=== PATIENT | female | born 1930 | race Two or more races ===

== ENCOUNTER 2016-12-18 22:53 | Observation (INO) | payer BC, MEDICARE ==
[~2016-12-18] VITALS: Ht 160 cm; Wt 58.1 kg
[~2016-12-18 22:53] MED LIST: ACET500T68 PO; AZIT250T6 PO; BUDE10.2 IH; CARV6.252 PO; CETI10TA22 PO; CHOL10003 PO; CLON0.2T PO; CLON1PAT PO; DICL100G18 TP; ESOM40CA PO; FURO20TA3 PO; FURO40TA4 PO; GUAI600T47 PO; HUM100IN3 SQ; HYDR50TA6 PO; INSU100I16 SQ; INSU100V3 SQ; IPRA3AMP NEB; LEVO500T59 PO; LEVO50TA PO; LOSA50TA6 PO; METH4TAB2 PO; MOME13HF IH; MONT10TA6 PO; MULT1TAB90 PO; OLOP2.5D EACHEYE; ONDA4TAB7 PO; OXYC5CAP PO; POLY17PO29 PO; POTA99TA10 PO; POTASSIUM CHLO10 MEQ PO; PROVENTIL HFA6.7 GM IH; RANI150T2 PO; SENN-22 PO; TRAM50TA PO
[2016-12-18 23:13] LABS: BASO # 0.1 x10^3/uL (0.0-0.2); BASO % 1 % (0-3); EOS % 3 % (0-3); HEMATOCRIT 32.5 % (36.0-47.0); HEMOGLOBIN 10.9 g/dL (12.0-15.5); LYMPH # 1.6 x10^3/uL (1.0-4.8); LYMPH % 17 % (24-48); MEAN CORPUSCULAR HEMOGLOBIN 30 pg (25-35); MEAN CORPUSCULAR HGB CONC 34 g/dL (31-37); MEAN CORPUSCULAR VOLUME 89 fL (79-100); MONO % 8 % (0-9); NEUT % 71 % (31-73); PLATELET COUNT 255 x10^3/uL (140-400); RED BLOOD COUNT 3.64 x10^6/uL (3.50-5.40); RED CELL DISTRIBUTION WIDTH 14.1 % (11.5-14.5); WHITE BLOOD COUNT 9.2 x10^3/uL (4.0-11.0)
--- NOTE | 2016-12-18 23:19 | PHYS DOC ---
Past Medical History Past Medical History: Asthma, CHF, Diabetes-Type II, GERD, High Cholesterol, Hypertension, Hyperthyroid, Pneumonia, Renal Disease Additional Past Medical Histor: Thyroid Past Surgical History: Cholecystectomy, , Other Additional Past Surgical Histo: R SHOULDER Additional Information: non smoker Alcohol Use: None Drug Use: None Adult General Chief Complaint Chief Complaint: DIZZY/LIGHT HEADED HPI HPI Patient is a 86 year old female who presents with dizziness. She states she was watching TV at 2000 p.m. when she started feeling dizzy. She describes as a lightheadedness. No syncope. She states that she just couldn't go to sleep. No headache, no chest pain, no difficulty breathing. She states she normally uses a cane to ambulate had no falls today. She states "I having a good day until this happen". No visual changes, no neck pain, no numbness tingling or weakness of her arms or legs. She is followed by Dr Lupe Boothe. Last admission for pneumonia in Apr 2016. Review of Systems Review of Systems Constitutional: Denies fever or chills Eyes: Denies change in visual acuity, redness, or eye pain HENT: Denies nasal congestion or sore throat Respiratory: Denies cough or shortness of breath Cardiovascular: No chest pain GI: Denies abdominal pain, nausea, vomiting, bloody stools or diarrhea : Denies dysuria or hematuria Musculoskeletal: Denies back pain or joint pain Integument: Denies rash or skin lesions Neurologic: Denies headache, focal weakness or sensory changes. POS dizziness. Current Medications Current Medications Current Medications Medications (Trade) Dose Ordered Sig/Hernán Start Time Stop Time Status Last Admin Dose Admin Ceftriaxone Sodium 50 ml @ 100 mls/hr 1X ONCE 12/19/16 00:45 12/19/16 01:14 Info (Do NOT chart on this entry -- for MONITORING) 1 each PRN DAILY PRN 12/19/16 00:30 12/21/16 00:29 Iohexol (Omnipaque 300 Mg/ml) 75 ml 1X ONCE 12/19/16 00:15 12/19/16 00:25 DC 12/19/16 00:21 75 ML Allergies Allergies Allergies Coded Allergies Type Severity Reaction Last Updated Verified celecoxib Allergy Intermediate 04/26/16 Yes hydrocodone Allergy Intermediate 07/24/15 Yes itraconazole Allergy Intermediate 07/24/15 Yes metoclopramide Allergy Intermediate 07/24/15 Yes propoxyphene Allergy Intermediate 07/24/15 Yes Physical Exam Physical Exam Constitutional: Well developed, well nourished, no acute distress, non-toxic appearance. HENT: Normocephalic, atraumatic, bilateral external ears normal, oropharynx moist, no oral exudates, nose normal. Eyes: PERRLA, EOMI, conjunctiva normal, no discharge. Neck: Normal range of motion, no tenderness, supple, no stridor. Cardiovascular:Heart rate regular rhythm, no murmur Lungs & Thorax: Bilateral breath sounds clear to auscultation Abdomen: Bowel sounds normal, soft, no tenderness, no masses, no pulsatile masses. Skin: Warm, dry, no erythema, no rash. Back: No tenderness, no CVA tenderness. Extremities: No tenderness, no cyanosis, no clubbing, ROM intact, no edema. Neurologic: Alert and oriented X 3, normal motor function, normal sensory function, no focal deficits noted. NIHSS zero. Psychologic: Affect normal, judgement normal, mood normal. Current Patient Data Lab Values Laboratory Tests Test 12/18/16 23:03 12/18/16 23:15 White Blood Count 9.2 x10^3/uL (4.0-11.0) Red Blood Count 3.64 x10^6/uL (3.50-5.40) Hemoglobin 10.9 g/dL (12.0-15.5) L Hematocrit 32.5 % (36.0-47.0) L Mean Corpuscular Volume 89 fL (79-100) Mean Corpuscular Hemoglobin 30 pg (25-35) Mean Corpuscular Hemoglobin Concent 34 g/dL (31-37) Red Cell Distribution Width 14.1 % (11.5-14.5) Platelet Count 255 x10^3/uL (140-400) Neutrophils (%) (Auto) 71 % (31-73) Lymphocytes (%) (Auto) 17 % (24-48) L Monocytes (%) (Auto) 8 % (0-9) Eosinophils (%) (Auto) 3 % (0-3) Basophils (%) (Auto) 1 % (0-3) Neutrophils # (Auto) 6.6 x10^3uL (1.8-7.7) Lymphocytes # (Auto) 1.6 x10^3/uL (1.0-4.8) Monocytes # (Auto) 0.8 x10^3/uL (0.0-1.1) Eosinophils # (Auto) 0.2 x10^3/uL (0.0-0.7) Basophils # (Auto) 0.1 x10^3/uL (0.0-0.2) Prothrombin Time 12.8 SEC (11.7-14.0) Prothrombin Time INR 1.0 (0.8-1.1) D-Dimer (Yen) 1.83 ug/mlFEU (0.00-0.50) H Sodium Level 140 mmol/L (136-145) Potassium Level 3.2 mmol/L (3.5-5.1) L Chloride Level 101 mmol/L (98-107) Carbon Dioxide Level 29 mmol/L (21-32) Anion Gap 10 (6-14) Blood Urea Nitrogen 13 mg/dL (7-20) Creatinine 0.6 mg/dL (0.6-1.0) Estimated GFR (Cockcroft-Gault) 94.3 Glucose Level 61 mg/dL (70-99) L Calcium Level 9.4 mg/dL (8.5-10.1) Creatine Kinase 44 U/L (26-192) Creatine Kinase MB (Mass) 0.5 ng/mL (0.0-3.6) Creatine Kinase MB Relative Index % (0-4) Troponin I Quantitative < 0.017 ng/mL (0.000-0.055) DE-Mwg-X-Type Natriuretic Peptide 560 pg/mL (0-449) H Urine Collection Type Unknown Urine Color Yellow Urine Clarity Clear Urine pH 7.5 Urine Specific [place] 1.010 Urine Protein Negative mg/dL (NEG-TRACE) Urine Glucose (UA) Negative mg/dL (NEG) Urine Ketones (Stick) Negative mg/dL (NEG) Urine Blood Negative (NEG) Urine Nitrite Positive (NEG) Urine Bilirubin Negative (NEG) Urine Urobilinogen Dipstick 0.2 mg/dL (0.2 mg/dL) Urine Leukocyte Esterase Large (NEG) Urine RBC Occ /HPF (0-2) Urine WBC >40 /HPF (0-4) Urine Squamous Epithelial Cells Occ /LPF Urine Renal Epithelial Cells Occ /LPF Urine Bacteria Many /HPF (0-FEW) Urine Mucus Slight /LPF Laboratory Tests 12/18/16 23:03 Laboratory Tests 12/18/16 23:03 EKG EKG EKG interpreted by myself at 2345 PM: NSR, rate 73, leftward axis and Left ventricular hypertrophy. No acute ST elevation Radiology/Procedures Radiology/Procedures CXR interpreted by myself at 2330 PM: no infiltrate; no consolidation. No acute findings [facility] [address] [place] [address] IMAGING REPORT Signed PATIENT: FARZANEH MAHARAJ ACCOUNT: [id number] : 1930 LOCATION: ER AGE: 86 SEX: F EXAM STATUS: REG ER ORD. PHYSICIAN: COLEMAN LANCE MD REASON: dizzy PROCEDURE: CT HEAD WO CONTRAST PQRS Compliance Statement: One or more of the following individualized dose reduction techniques were utilized for this examination: 1. Automated exposure control 2. Adjustment of the mA and/or kV according to patient size 3. Use of iterative reconstruction technique CT HEAD WITHOUT CONTRAST History: dizzy, Comparison: CT head without contrast, December 22, 2014. Technique: Axial images are obtained of the head from the skull base through the vertex without IV contrast. Findings: No mass-effect, midline shift, extra-axial fluid collection, hemorrhage, or obvious acute infarction is identified. Basilar cisterns are patent. The ventricles and sulci are prominent, consistent with age-related cerebral atrophy. There is periventricular white matter hypoattenuation. This is a nonspecific finding but is commonly due to chronic small vessel ischemic disease. Old right cerebellar lacunar infarct. Bone windows demonstrate no acute calvarial abnormality. The visualized paranasal sinuses are clear. Bilateral mastoid air cells are partially opacified, worse on the right. Finding unchanged from prior study. IMPRESSION: 1. No acute intracranial abnormality. 2. Age-related cerebral atrophy and periventricular white matter changes of chronic small vessel ischemic disease. 3. Old right cerebellar lacunar infarct. 4. Bilateral mastoid air cells are partially opacified, unchanged from prior study. Electronically signed by: Saran Haile MD (12/18/2016 11:31 PM) [facility] DICTATED and SIGNED BY: SARAN HAILE MD DATE: 12/18/16 823 CC: COLEMAN LANCE MD; LUPE BOOTHE MD ~ [facility] [address] [place] [address] IMAGING REPORT Signed PATIENT: FARZANEH MAHARAJ ACCOUNT: [id number] : 1930 LOCATION: ER AGE: 86 SEX: F EXAM STATUS: REG ER ORD. PHYSICIAN: COLEMAN LANCE MD REASON: elev d dimer; r/o PE PROCEDURE: CT ANGIOGRAPHY CHEST PQRS Compliance Statement: One or more of the following individualized dose reduction techniques were utilized for this examination: 1. Automated exposure control 2. Adjustment of the mA and/or kV according to patient size 3. Use of iterative reconstruction technique CT CHEST WITH CONTRAST, PULMONARY ANGIOGRAM History: elevated d dimer, history of CHF. Comparison: None. Technique: Helical CT of the chest was performed after the administration of 75 cc Omnipaque 300 intravenous contrast according to PE protocol. Axial and coronal reconstructions were obtained. 3-D MIP images were constructed to better evaluate the pulmonary arteries. Findings: Pulmonary arteries are adequately opacified. There is no evidence of pulmonary embolism. Great vessels normal caliber. There is coronary artery disease. Elevation of right hemidiaphragm. Cardiac size normal, no pericardial effusion. No pleural effusion. No adenopathy in the chest. Central airways are patent. Peripheral reticular opacities in the lungs are probably due to scarring. There is bilateral lower lobe atelectasis. There is mild peribronchial thickening in the inferior lingula. Cholecystectomy. Adrenal gland hyperplasia. Right shoulder arthroplasty. No compression fracture in the thoracic spine is seen. IMPRESSION: 1. There is no CT evidence of pulmonary embolus. 2. Inferior lingular bronchitis. Electronically signed by: Saran Haile MD (12/19/2016 12:47 AM) [facility] DICTATED and SIGNED BY: SARAN HAILE MD DATE: 12/19/16 0042 CC: COLEMAN LANCE MD; LUPE BOOTHE MD ~ Course & Med Decision Making Course & Med Decision Making Evaluated patient upon arrival. NIHSS =0. My differential diagnosis includes but is not limited to acute cerebrovascular accident, myocardial ischemia, coronary emboli, sepsis, pneumonia, metabolic disorder, At midnight: lab reviewed; UA is positive. Rocephin IV dosed. WBC is normal with no left shift; NO SEPSIS indication. D dimer is elevated. Will check CT chest (normal creatinine). At 0100 AM: CT chest negative for PE. Admit for UTI and dizziness. No evidence of acute CVA or neurologic event at this time. Contacted DR Winifred Boothe for admission at 0100 AM and he accepted admission for obsv. I have spoken with the patient and/or caregivers. I have explained the patient' s condition, diagnosis and treatment plan based on the information available to me at this time. I have answered the patient's and/or caregiver's questions and addressed any concerns. The patient and/or caregivers have as good an understanding of the patient's diagnosis, condition and treatment plan as can be expected at this point. The patient has been stabilized within the capability of the emergency department. The patient will be transported for further care and management or will be moved to an observation or inpatient service. I have communicated with the staff or medical practitioner taking over this patient's care. Dragon Disclaimer Dragon Disclaimer This electronic medical record was generated, in whole or in part, using a voice recognition dictation system. Departure Departure Impression: Primary Impression: Urinary tract infection Additional Impression: Dizziness Disposition: ADMITTED INPATIENT Admitting Physician: Lupe Boothe Condition: STABLE Referrals: LUPE BOOTHE MD (PCP) NIHSS NIHSS Performed my myself at 2330 PM: Administer stroke scale items in the order listed. Record performance in each category after each subscale exam. Do not go back and change scores. Follow directions provided for each exam technique. Scores should reflect what the patient does, not what the clinician thinks the patient can do. The clinician should record answers while administering the exam and work quickly. Except where indicated, the patient should not be coached (i.e., repeated requests to patient to make a special effort). 1a. Level of Consciousness: The criminal investigator must choose a response if a full evaluation is prevented by such obstacles as an endotracheal tube, language barrier, orotracheal trauma/bandages. A 3 is scored only if the patient makes no movement (other than reflexive posturing) in response to noxious stimulation. 0 = Alert; keenly responsive. 1 = Not alert; but arousable by minor stimulation to obey, answer, or respond. 2 = Not alert; requires repeated stimulation to attend, or is obtunded and requires strong or painful stimulation to make movements (not stereotyped). 3 = Responds only with reflex motor or autonomic effects or totally unresponsive, flaccid, and areflexic. 1b. LOC Questions: The patient is asked the month and his/her age. The answer must be correct - there is no partial credit for being close. Aphasic and stuporous patients who do not comprehend the questions will score 2. Patients unable to speak because of endotracheal intubation, orotracheal trauma, severe dysarthria from any cause, language barrier, or any other problem not secondary to aphasia are given a 1. It is important that only the initial answer be graded and that the examiner not "help" the patient with verbal or non-verbal cues. 0 = Answers both questions correctly. 1 = Answers one question correctly. 2 = Answers neither question correctly. 1c. LOC Commands: The patient is asked to open and close the eyes and then to balance clerk and release the non-paretic hand. Substitute another one step command if the hands cannot be used. Credit is given if an unequivocal attempt is made but not completed due to weakness. If the patient does not respond to command, the task should be demonstrated to him or her (pantomime), and the result scored (i.e., follows none, one or two commands). Patients with trauma, amputation, or other physical impediments should be given suitable one-step commands. Only the first attempt is scored. 0 = Performs both tasks correctly. 1 = Performs one task correctly. 2 = Performs neither task correctly. 2. Best Gaze: Only horizontal eye movements will be tested. Voluntary or reflexive (oculocephalic) eye movements will be scored, but caloric testing is not done. If the patient has a conjugate deviation of the eyes that can be overcome by voluntary or reflexive activity, the score will be 1. If a patient has an isolated peripheral nerve paresis (CN III, IV or ), score a 1. Gaze is testable in all aphasic patients. Patients with ocular trauma, bandages, pre-existing blindness, or other disorder of visual acuity or austin should be tested with reflexive movements, and a choice made by the criminal investigator. Establishing eye contact and then moving about the patient from side to side will occasionally clarify the presence of a partial gaze palsy. 0 = Normal. 1 = Partial gaze palsy; gaze is abnormal in one or both eyes, but forced deviation or total gaze paresis is not present. 2 = Forced deviation, or total gaze paresis not overcome by the oculocephalic maneuver. Interval: [ ] Baseline [ ] 2 hours post treatment [ ] 24 hours post onset of symptoms 20 minutes [ ] 7-10 days [ ] 3 months [ ] Other ( ) 3. Visual: Visual austin (upper and lower quadrants) are tested by confrontation, using finger counting or visual threat, as appropriate. Patients may be encouraged, but if they look at the side of the moving fingers appropriately, this can be scored as normal. If there is unilateral blindness or enucleation, visual austin in the remaining eye are scored. Score 1 only if a clear-cut asymmetry, including quadrantanopia, is found. If patient is blind from any cause, score 3. Double simultaneous stimulation is performed at this point. If there is extinction, patient receives a 1, and the results are used to respond to item 11. 0 = No visual loss. 1 = Partial hemianopia. 2 = Complete hemianopia. 3 = Bilateral hemianopia (blind including cortical blindness). 4. Facial Palsy: Ask - or use pantomime to encourage - the patient to show teeth or raise eyebrows and close eyes. Score symmetry of grimace in response to noxious stimuli in the poorly responsive or non-comprehending patient. If facial trauma/bandages, orotracheal tube, tape or other physical barriers obscure the face, these should be removed to the extent possible. 0 = Normal symmetrical movements. 1 = Minor paralysis (flattened nasolabial fold, asymmetry on smiling). 2 = Partial paralysis (total or near-total paralysis of lower face). 3 = Complete paralysis of one or both sides (absence of facial movement in the upper and lower face). 5. Motor Arm: The limb is placed in the appropriate position: extend the arms (palms down) 90 degrees (if sitting) or 45 degrees (if supine). Drift is scored if the arm falls before 10 seconds. The aphasic patient is encouraged using urgency in the voice and pantomime, but not noxious stimulation. Each limb is tested in turn, beginning with the non-paretic arm. Only in the case of amputation or joint fusion at the shoulder, the examiner should record the score as untestable (UN), and clearly write the explanation for this choice. 0 = No drift; limb holds 90 (or 45) degrees for full 10 seconds. 1 = Drift; limb holds 90 (or 45) degrees, but drifts down before full 10 seconds ; does not hit bed or other support. 2 = Some effort against gravity; limb cannot get to or maintain (if cued) 90 ( or 45) degrees, drifts down to bed, but has some effort against gravity. 3 = No effort against gravity; limb falls. 4 = No movement. UN = Amputation or joint fusion, explain: 5a. Left Arm=0 5b. Right Arm =0 6. Motor Leg: The limb is placed in the appropriate position: hold the leg at 30 degrees (always tested supine). Drift is scored if the leg falls before 5 seconds. The aphasic patient is encouraged using urgency in the voice and pantomime, but not noxious stimulation. Each limb is tested in turn, beginning with the non-paretic leg. Only in the case of amputation or joint fusion at the hip, the examiner should record the score as untestable (UN), and clearly write the explanation for this choice. 0 = No drift; leg holds 30-degree position for full 5 seconds. 1 = Drift; leg falls by the end of the 5-second period but does not hit bed. 2 = Some effort against gravity; leg falls to bed by 5 seconds, but has some effort against gravity. 3 = No effort against gravity; leg falls to bed immediately. 4 = No movement. UN = Amputation or joint fusion, explain: 6a. Left Leg=0 6b. Right Leg =0 Interval: [ ] Baseline [ ] 2 hours post treatment [ ] 24 hours post onset of symptoms 20 minutes [ ] 7-10 days [ ] 3 months [ ] Other ( ) 7. Limb Ataxia: This item is aimed at finding evidence of a unilateral cerebellar lesion. Test with eyes open. In case of visual defect, ensure testing is done in intact visual field. The ggejzq-lvvw-jjndis and heel-piedra tests are performed on both sides, and ataxia is scored only if present out of proportion to weakness. Ataxia is absent in the patient who cannot understand or is paralyzed. Only in the case of amputation or joint fusion, the examiner should record the score as untestable (UN), and clearly write the explanation for this choice. In case of blindness, test by having the patient touch nose from extended arm position. 0 = Absent. 1 = Present in one limb. 2 = Present in two limbs. UN = Amputation or joint fusion, explain: 8. Sensory: Sensation or grimace to pinprick when tested, or withdrawal from noxious stimulus in the obtunded or aphasic patient. Only sensory loss attributed to stroke is scored as abnormal and the examiner should test as many body areas (arms [not hands], legs, trunk, face) as needed to accurately check for hemisensory loss. A score of 2, "severe or total sensory loss," should only be given when a severe or total loss of sensation can be clearly demonstrated. Stuporous and aphasic patients will, therefore, probably score 1 or 0. The patient with brainstem stroke who has bilateral loss of sensation is scored 2. If the patient does not respond and is quadriplegic, score 2. Patients in a coma (item 1a=3) are automatically given a 2 on this item. 0 = Normal; no sensory loss. 1 = Nsxd-dt-[id number] sensory loss; patient feels pinprick is less sharp or is dull on the affected side; or there is a loss of superficial pain with pinprick , but patient is aware of being touched. 2 = Severe to total sensory loss; patient is not aware of being touched in the face, arm, and leg. 9. Best Language: A great deal of information about comprehension will be obtained during the preceding sections of the examination. For this scale item, the patient is asked to describe what is happening in the attached picture, to name the items on the attached naming sheet and to read from the attached list of sentences. Comprehension is judged from responses here, as well as to all of the commands in the preceding general neurological exam. If visual loss interferes with the tests, ask the patient to identify objects placed in the hand, repeat, and produce speech. The intubated patient should be asked to write. The patient in a coma (item 1a=3) will automatically score 3 on this item. The examiner must choose a score for the patient with stupor or limited cooperation, but a score of 3 should be used only if the patient is mute and follows no one-step commands. 0 = No aphasia; normal. 1 = Xxsk-ry-solteiyi aphasia; some obvious loss of fluency or facility of comprehension, without significant limitation on ideas expressed or form of expression. Reduction of speech and/or comprehension, however, makes conversation about provided materials difficult or impossible. For example, in conversation about provided materials, examiner can identify picture or naming card content from patient's response. 2 = Severe aphasia; all communication is through fragmentary expression; great need for inference, questioning, and guessing by the listener. Range of information that can be exchanged is limited; listener carries burden of communication. Examiner cannot identify materials provided from patient response. 3 = Mute, global aphasia; no usable speech or auditory comprehension. 10. Dysarthria: If patient is thought to be normal, an adequate sample of speech must be obtained by asking patient to read or repeat words from the attached list. If the patient has severe aphasia, the clarity of articulation of spontaneous speech can be rated. Only if the patient is intubated or has other physical barriers to producing speech, the examiner should record the score as untestable (UN), and clearly write an explanation for this choice. Do not tell the patient why he or she is being tested. 0 = Normal. 1 = Cjwc-xh-ehfyoszd dysarthria; patient slurs at least some words and, at worst , can be understood with some difficulty. 2 = Severe dysarthria; patient's speech is so slurred as to be unintelligible in the absence of or out of proportion to any dysphasia, or is mute/anarthric. UN = Intubated or other physical barrier, explain: Interval: [ ] Baseline [ ] 2 hours post treatment [ ] 24 hours post onset of symptoms 20 minutes [ ] 7-10 days [ ] 3 months [ ] Other ( ) 11. Extinction and Inattention (formerly Neglect): Sufficient information to identify neglect may be obtained during the prior testing. If the patient has a severe visual loss preventing visual double simultaneous stimulation, and the cutaneous stimuli are normal, the score is normal. If the patient has aphasia but does appear to attend to both sides, the score is normal. The presence of visual spatial neglect or anosagnosia may also be taken as evidence of abnormality. Since the abnormality is scored only if present, the item is never untestable. 0 = No abnormality. 1 = Visual, tactile, auditory, spatial, or personal inattention or extinction to bilateral simultaneous stimulation in one of the sensory modalities. 2 = Profound manuela-inattention or extinction to more than one modality; does not recognize own hand or orients to only one side of space. Problem Qualifiers Primary Impression: Urinary tract infection Urinary tract infection type: acute cystitis Hematuria presence: without hematuria Qualified Codes: N30.00 - Acute cystitis without hematuria COLEMAN LANCE MD Dec 18, 2016 23:19
[2016-12-18 23:23] LABS: PROTHROMBIN TIME PATIENT 12.8 SEC (11.7-14.0)
[2016-12-18 23:25] LABS: CALCIUM 9.4 mg/dL (8.5-10.1); CREATININE 0.6 mg/dL (0.6-1.0); GFR 94.3; POTASSIUM 3.2 mmol/L (3.5-5.1)
[2016-12-18 23:31] LABS: BILIRUBIN,URINE NEGATIVE (NEG); GLUCOSE,URINE NEGATIVE (NEG); NITRITE,URINE POSITIVE (NEG); PH,URINE 7.5; PROTEIN,URINE NEGATIVE (NEG-TRACE); UROBILINOGEN,URINE 0.2 mg/dL (0.2 mg/dL)
--- NOTE | 2016-12-18 23:34 | RAD ---
RS Compliance Statement: One or more of the following individualized dose reduction techniques were utilized for this examination: 1. Automated exposure control 2. Adjustment of the mA and/or kV according to patient size 3. Use of iterative reconstruction technique CT HEAD WITHOUT CONTRAST History: dizzy, Comparison: CT head without contrast, December 22, 2014. Technique: Axial images are obtained of the head from the skull base through the vertex without IV contrast. Findings: No mass-effect, midline shift, extra-axial fluid collection, hemorrhage, or obvious acute infarction is identified. Basilar cisterns are patent. The ventricles and sulci are prominent, consistent with age-related cerebral atrophy. There is periventricular white matter hypoattenuation. This is a nonspecific finding but is commonly due to chronic small vessel ischemic disease. Old right cerebellar lacunar infarct. Bone windows demonstrate no acute calvarial abnormality. The visualized paranasal sinuses are clear. Bilateral mastoid air cells are partially opacified, worse on the right. Finding unchanged from prior study. IMPRESSION: 1. No acute intracranial abnormality. 2. Age-related cerebral atrophy and periventricular white matter changes of chronic small vessel ischemic disease. 3. Old right cerebellar lacunar infarct. 4. Bilateral mastoid air cells are partially opacified, unchanged from prior study. Electronically signed by: Noel Haile MD (12/18/2016 11:31 PM) [facility]
[2016-12-18 23:39] LABS: BACTERIA,URINE MANY /HPF (0-FEW); RBC,URINE OCC /HPF (0-2); SQUAMOUS EPITHELIAL CELL,UR OCC /LPF; WBC,URINE >40 /HPF (0-4)
[2016-12-18 23:41] LABS: CKMB MASS 0.5 ng/mL (0.0-3.6); CREATINE KINASE 44 U/L (26-192)
[2016-12-19] VITALS (7 sets, daily range): BP systolic 106–155; BP diastolic 54–85
[2016-12-19] MEDS ORDERED: IOHEXOL 300 MG/ML 75 ML VIAL IV ONE (00:15)
[2016-12-19] MEDS ORDERED: CONTRAST GIVEN MC PRN (00:30)
--- NOTE | 2016-12-19 00:50 | RAD ---
PQRS Compliance Statement: One or more of the following individualized dose reduction techniques were utilized for this examination: 1. Automated exposure control 2. Adjustment of the mA and/or kV according to patient size 3. Use of iterative reconstruction technique CT CHEST WITH CONTRAST, PULMONARY ANGIOGRAM History: elevated d dimer, history of CHF. Comparison: None. Technique: Helical CT of the chest was performed after the administration of 75 cc Omnipaque 300 intravenous contrast according to PE protocol. Axial and coronal reconstructions were obtained. 3-D MIP images were constructed to better evaluate the pulmonary arteries. Findings: Pulmonary arteries are adequately opacified. There is no evidence of pulmonary embolism. Great vessels normal caliber. There is coronary artery disease. Elevation of right hemidiaphragm. Cardiac size normal, no pericardial effusion. No pleural effusion. No adenopathy in the chest. Central airways are patent. Peripheral reticular opacities in the lungs are probably due to scarring. There is bilateral lower lobe atelectasis. There is mild peribronchial thickening in the inferior lingula. Cholecystectomy. Adrenal gland hyperplasia. Right shoulder arthroplasty. No compression fracture in the thoracic spine is seen. IMPRESSION: 1. There is no CT evidence of pulmonary embolus. 2. Inferior lingular bronchitis. Electronically signed by: Noel Haile MD (12/19/2016 12:47 AM) [facility]
[2016-12-19] MEDS ORDERED: cloNIDine HCL 0.1 MG TABLET PO ONE (01:15)
[2016-12-19] MEDS ORDERED: ONDANSETRON PF 4 MG/2 ML VIAL. IV PRN (02:45)
--- NOTE | 2016-12-19 06:09 | EKG ---
[facility] [address] [place] [address] Test Date: 2016-12-18 Test Time: 23:45:39 Pat Name: FARZANEH MAHARAJ Department: Room: [facility] 1 Gender: F School Counsellor: : 1930 Requested By: COLEMAN LANCE Order Number: [id number] Reading MD: Ambrocio West Measurements Intervals [place] Rate: 73 P: 22 NH: 140 QRS: -16 QRSD: 106 T: -11 QT: 394 QTc: 438 Interpretive Statements SINUS RHYTHM LEFTWARD AXIS LEFT VENTRICULAR HYPERTROPHY T ABNORMALITY IN ANTERIOR LEADS ABNORMAL ECG Electronically Signed On 12-20-2016 11:19:52 CDT by Ambrocio West
--- NOTE | 2016-12-19 07:25 | RAD ---
Exam performed: One view chest. History: Dizziness. Date of service: 12/18/16. Comparison: Single view chest from 04/28/16. Single AP upright portable chest findings: Study somewhat limited due to poor inspiration. Heart size is within limits of normal. Pulmonary vascularity is unremarkable. Atheromatous calcification of the aortic knob. Prominent interstitial markings are seen in both lungs probably a chronic basis. Questionable opacity seen in the left lung base with blunting of the left costophrenic angle Impression: Questionable left basilar infiltrates with probable tiny effusion.
[2016-12-19] MEDS: POTASSIUM CHLORIDE 20 MEQ TABLET.ER. PO SCH ×2 (09:38→14:38)
[2016-12-19] MEDS: FUROSEMIDE 20 MG TABLET PO SCH (09:41)
[2016-12-19] MEDS: CARVEDILOL 6.25 MG TABLET. PO SCH ×2 (09:41→17:58)
[2016-12-19] MEDS: cloNIDine HCL 0.2 MG TABLET PO SCH ×2 (09:42→20:37)
[2016-12-19] MEDS: LEVOTHYROXINE 100 MCG TABLET PO SCH (09:42)
--- NOTE | 2016-12-19 09:42 | PDOC1 ---
JATIN KEARNS CUSTOMER SUCCESS SPECIALIST 12/19/16 0942: HISTORY AND PHYSICAL Chief Complaint Chief Complaint This 86 year old [place]ian female has been admitted with a chief complaint of dizziness. This morning she reports she felt a hot feeling and just did not feel right. She had noted a cough that was scant positive thick sputum but no chills. She was concerned about her symptoms, called 911 and was brought to the ED for evaluation. CT of the head was negative acute findings. EKG SR no acute changes but subtle changes present. CXR suggestive L basilar infiltrate. CTA chest inferior lingular bronchitis. UA + nitrite, large leukoesterase, and WBC > 40. Hypertensive urgency was present with SBP >200. She was given clonidine 0.2mg, Rocephin 1gm IV x 1 and admitted. . 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 Medications Medications reviewed and reconciled Allergy Allergies Coded Allergies Type Severity Reaction Last Updated Verified celecoxib Allergy Intermediate 04/26/16 Yes hydrocodone Allergy Intermediate 07/24/15 Yes itraconazole Allergy Intermediate 07/24/15 Yes metoclopramide Allergy Intermediate 07/24/15 Yes propoxyphene Allergy Intermediate 07/24/15 Yes Physical Exam Physical Exam General appearance - alert,well appearing, and in no distress Mental Status - alert, oriented to person, place, and time, affect appropriate to mood Head - normal Chest - clear to auscultation, no wheezes, rales or rhonchi Heart - S1 and S2 normal Abdomen - soft, nontender, nondistended, obese, BS+ Neurological - no acute focal neurological deficit Musculoskeletal - no muscular tenderness noted Extremities - no pedal edema Skin - warm and dry VTE Prophylaxis Ordered VTE Prophylaxis Devices: Yes VTE Pharmacological Prophylaxi: No Assessment Labs Laboratory Tests Test 12/18/16 23:03 12/18/16 23:15 12/19/16 02:00 White Blood Count 9.2 x10^3/uL (4.0-11.0) Red Blood Count 3.64 x10^6/uL (3.50-5.40) Hemoglobin 10.9 g/dL (12.0-15.5) Hematocrit 32.5 % (36.0-47.0) Mean Corpuscular Volume 89 fL (79-100) Mean Corpuscular Hemoglobin 30 pg (25-35) Mean Corpuscular Hemoglobin Concent 34 g/dL (31-37) Red Cell Distribution Width 14.1 % (11.5-14.5) Platelet Count 255 x10^3/uL (140-400) Neutrophils (%) (Auto) 71 % (31-73) Lymphocytes (%) (Auto) 17 % (24-48) Monocytes (%) (Auto) 8 % (0-9) Eosinophils (%) (Auto) 3 % (0-3) Basophils (%) (Auto) 1 % (0-3) Neutrophils # (Auto) 6.6 x10^3uL (1.8-7.7) Lymphocytes # (Auto) 1.6 x10^3/uL (1.0-4.8) Monocytes # (Auto) 0.8 x10^3/uL (0.0-1.1) Eosinophils # (Auto) 0.2 x10^3/uL (0.0-0.7) Basophils # (Auto) 0.1 x10^3/uL (0.0-0.2) Prothrombin Time 12.8 SEC (11.7-14.0) Prothromb Time International Ratio 1.0 (0.8-1.1) D-Dimer (Yen) 1.83 ug/mlFEU (0.00-0.50) Sodium Level 140 mmol/L (136-145) Potassium Level 3.2 mmol/L (3.5-5.1) Chloride Level 101 mmol/L (98-107) Carbon Dioxide Level 29 mmol/L (21-32) Anion Gap 10 (6-14) Blood Urea Nitrogen 13 mg/dL (7-20) Creatinine 0.6 mg/dL (0.6-1.0) Estimated GFR (Cockcroft-Gault) 94.3 Glucose Level 61 mg/dL (70-99) Calcium Level 9.4 mg/dL (8.5-10.1) Creatine Kinase 44 U/L (26-192) Creatine Kinase MB (Mass) 0.5 ng/mL (0.0-3.6) Creatine Kinase MB Relative Index % (0-4) Troponin I Quantitative < 0.017 ng/mL (0.000-0.055) < 0.017 ng/mL (0.000-0.055) YP-Gqy-E-Type Natriuretic Peptide 560 pg/mL (0-449) Urine Collection Type Unknown Urine Color Yellow Urine Clarity Clear Urine pH 7.5 Urine Specific [place] 1.010 Urine Protein Negative mg/dL (NEG-TRACE) Urine Glucose (UA) Negative mg/dL (NEG) Urine Ketones (Stick) Negative mg/dL (NEG) Urine Blood Negative (NEG) Urine Nitrite Positive (NEG) Urine Bilirubin Negative (NEG) Urine Urobilinogen Dipstick 0.2 mg/dL (0.2 mg/dL) Urine Leukocyte Esterase Large (NEG) Urine RBC Occ /HPF (0-2) Urine WBC >40 /HPF (0-4) Urine Squamous Epithelial Cells Occ /LPF Urine Renal Epithelial Cells Occ /LPF Urine Bacteria Many /HPF (0-FEW) Urine Mucus Slight /LPF Laboratory Tests Test 12/18/16 23:03 12/18/16 23:15 12/19/16 02:00 White Blood Count 9.2 x10^3/uL (4.0-11.0) Red Blood Count 3.64 x10^6/uL (3.50-5.40) Hemoglobin 10.9 g/dL (12.0-15.5) Hematocrit 32.5 % (36.0-47.0) Mean Corpuscular Volume 89 fL (79-100) Mean Corpuscular Hemoglobin 30 pg (25-35) Mean Corpuscular Hemoglobin Concent 34 g/dL (31-37) Red Cell Distribution Width 14.1 % (11.5-14.5) Platelet Count 255 x10^3/uL (140-400) Neutrophils (%) (Auto) 71 % (31-73) Lymphocytes (%) (Auto) 17 % (24-48) Monocytes (%) (Auto) 8 % (0-9) Eosinophils (%) (Auto) 3 % (0-3) Basophils (%) (Auto) 1 % (0-3) Neutrophils # (Auto) 6.6 x10^3uL (1.8-7.7) Lymphocytes # (Auto) 1.6 x10^3/uL (1.0-4.8) Monocytes # (Auto) 0.8 x10^3/uL (0.0-1.1) Eosinophils # (Auto) 0.2 x10^3/uL (0.0-0.7) Basophils # (Auto) 0.1 x10^3/uL (0.0-0.2) Prothrombin Time 12.8 SEC (11.7-14.0) Prothromb Time International Ratio 1.0 (0.8-1.1) D-Dimer (Yen) 1.83 ug/mlFEU (0.00-0.50) Sodium Level 140 mmol/L (136-145) Potassium Level 3.2 mmol/L (3.5-5.1) Chloride Level 101 mmol/L (98-107) Carbon Dioxide Level 29 mmol/L (21-32) Anion Gap 10 (6-14) Blood Urea Nitrogen 13 mg/dL (7-20) Creatinine 0.6 mg/dL (0.6-1.0) Estimated GFR (Cockcroft-Gault) 94.3 Glucose Level 61 mg/dL (70-99) Calcium Level 9.4 mg/dL (8.5-10.1) Creatine Kinase 44 U/L (26-192) Creatine Kinase MB (Mass) 0.5 ng/mL (0.0-3.6) Creatine Kinase MB Relative Index % (0-4) Troponin I Quantitative < 0.017 ng/mL (0.000-0.055) < 0.017 ng/mL (0.000-0.055) US-Kyx-M-Type Natriuretic Peptide 560 pg/mL (0-449) Urine Collection Type Unknown Urine Color Yellow Urine Clarity Clear Urine pH 7.5 Urine Specific [place] 1.010 Urine Protein Negative mg/dL (NEG-TRACE) Urine Glucose (UA) Negative mg/dL (NEG) Urine Ketones (Stick) Negative mg/dL (NEG) Urine Blood Negative (NEG) Urine Nitrite Positive (NEG) Urine Bilirubin Negative (NEG) Urine Urobilinogen Dipstick 0.2 mg/dL (0.2 mg/dL) Urine Leukocyte Esterase Large (NEG) Urine RBC Occ /HPF (0-2) Urine WBC >40 /HPF (0-4) Urine Squamous Epithelial Cells Occ /LPF Urine Renal Epithelial Cells Occ /LPF Urine Bacteria Many /HPF (0-FEW) Urine Mucus Slight /LPF Plan Plan IMPRESSION: 1. dizziness r/t hypertensive urgency 2. HTN urgency 3. acute bronchitis 4. UTI 5. asthma 5. anemia CD 6. CKD II 7. hyperlipidemia 8. h/o NSTEMI in Apr 2015 with negative CAD per CC 9. 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 chronic moderate PCL malnutrition 11. DM II chronic insulin with neuropathy PLAN HTN urgency resume home meds dizziness r/t elevated BP Acute bronchitis duo neb and budesonide Mucinex Rocephin IV UTI c/s pending Rocephin IV DM II humR conversion to levemir per pharmacy FSBS/ssi low intensity DVT/GI prophylaxis SCD/RANDY PPI For more details regarding further plans, please refer to the orders. LUPE MEDINA MD 12/19/16 1001: HISTORY AND PHYSICAL Plan Plan Patient had feeling of being hot and dizzy that lasted for a long time yesterday. Dizziness- multifactorial- possible UTI,?bronchitis,hypokalemia. start Rocephin.Replace K.Not sure if she is taking her KCL at home. EKG no new changes. The patient was seen and examined by me. Chart reviewed and plan of care formulated. Discussed with, reviewed and agree with TAMALE MAKER's notes, plan of care and orders with modifications as necessary. For more details regarding further plans, please refer to the orders. JATIN KEARNS APRN Dec 19, 2016 09:42 LUPE MEDINA MD Dec 19, 2016 10:01
[2016-12-19] MEDS ORDERED: ACETAMINOPHEN 325 MG TABLET. PO PRN (09:45)
[2016-12-19] MEDS: IPRATRPIUM/ALBUTEROL 0.5/2.5MG 3 ML NEBU. NEB SCH ×3 (11:12→19:50)
[2016-12-19] MEDS: BUDESONIDE 0.5 MG/2 ML NEBU. NEB SCH ×2 (11:13→19:50)
[2016-12-19] MEDS: MULTIVITAMIN with MINERAL TABLET. PO SCH (11:37)
[2016-12-19] MEDS: PANTOPRAZOLE 40 MG TABLET.DR. PO SCH (11:37)
[2016-12-19] MEDS: POLYETHYLENE GLYCOL 3350 17 GM PACKET. PO SCH (11:39)
[2016-12-19] MEDS: INSULIN DETEMIR 300 UNITS/3 ML INSULN.PEN. SQ SCH ×2 (12:31→18:01)
[2016-12-19] MEDS: INSULIN ASPART 300 UNITS/3 ML INSULN.PEN SQ SCH ×2 (12:33→16:30)
[2016-12-19] MEDS: DICLOFENAC SODIUM 1% TOPICAL GEL 100GM TUBE. TP SCH ×2 (14:41→20:38)
[2016-12-19] MEDS: LOSARTAN POTASSIUM 50 MG TABLET. PO SCH (20:36)
[2016-12-19] MEDS ORDERED: CETIRIZINE HCL 10 MG TABLET. PO SCH (21:00)
[2016-12-19] MEDS ORDERED: MONTELUKAST SODIUM 10 MG TABLET. PO SCH (21:00)
--- NOTE | 2016-12-20 00:10 | ACF ---
Admission Forms Criteria URINARY COMPLICATIONS (Place 'X' for any and all applicable criteria): Ongoing inpatient care may be needed for Urinary complications with 1 or more of the following: [ ]I. Reduced urine output (eg, despite adequate hydration) [ ]II. Renal failure. (Also use Renal Failure: Common Complications and Conditions as appropriate) [ ]III. Urinary retention requiring drainage or surgery(19)(20)(21)(33)(34) [ ]IV. Postobstructive diuresis requiring close monitoring of urine output and intravenous compensation for excessive fluid losses(35) [X]V. Urinary tract infection requiring inpatient care as indicated by ANY ONE of the following(8)(19)(20): [ ]a) Hemodynamic instability [ ]b) Severe symptoms (eg, high fever, severe pain) [ ]c) Vomiting or dehydration requiring ongoing inpatient care [X]d) IV antibiotic needs that cannot be managed at lower level of care [ ]e) Obstruction of collecting system by stone or tumor Extended stay beyond goal length of stay for primary condition may be needed until ALL of the following are present(3)(4)(5)(8): [ ]a) Renal function (creatinine) at baseline, or daily decreases in creatinine consistent with renal function return [ ]b) Voiding adequately or with urinary catheter or percutaneous suprapubic tube and management regimen in place that is performable at lower level of care. [ ]c) Urine output adequate [ ]d) Fever absent or resolving [ ]e) Infection absent or treatable at next level of care The original [employer] content created by [employer] has been revised. The portions of the content which have been revised are identified through the use of italic text, and [facility] has neither reviewed nor approved the modified material. All other unmodified content is copyright [facility] Please see references footnoted in the original [facility] edition 2015 Admission Criteria Met?: Yes ALICIA HAYES Dec 20, 2016 00:10
[2016-12-20 06:51] LABS: BASO % 1 % (0-3); EOS % 3 % (0-3); HEMATOCRIT 30.1 % (36.0-47.0); HEMOGLOBIN 9.9 g/dL (12.0-15.5); LYMPH # 1.4 x10^3/uL (1.0-4.8); LYMPH % 24 % (24-48); MEAN CORPUSCULAR HEMOGLOBIN 30 pg (25-35); MEAN CORPUSCULAR HGB CONC 33 g/dL (31-37); MEAN CORPUSCULAR VOLUME 91 fL (79-100); MONO % 9 % (0-9); NEUT % 64 % (31-73); PLATELET COUNT 218 x10^3/uL (140-400); RED BLOOD COUNT 3.32 x10^6/uL (3.50-5.40); RED CELL DISTRIBUTION WIDTH 14.6 % (11.5-14.5)
[2016-12-20 07:00] VITALS: BP 113/58
[2016-12-20 07:13] LABS: CREATININE 0.7 mg/dL (0.6-1.0); MAGNESIUM 2.2 mg/dL (1.8-2.4); POTASSIUM 4.3 mmol/L (3.5-5.1)
[2016-12-20] MEDS: INSULIN ASPART 300 UNITS/3 ML INSULN.PEN SQ SCH ×2 (07:30→11:30)
[2016-12-20] MEDS: IPRATRPIUM/ALBUTEROL 0.5/2.5MG 3 ML NEBU. NEB SCH ×2 (07:31→11:21)
[2016-12-20] MEDS: BUDESONIDE 0.5 MG/2 ML NEBU. NEB SCH (07:31)
--- NOTE | 2016-12-20 07:47 | PDOC3 ---
OLGAHannahJATIN ARELLANO DYNAMIC ETCHING PROCESSOR 12/20/16 0747: IM DISCHARGE & PROGRESS NOTES Date of Admission Date of Admission Date of Admission: Dec 19, 2016 at 01:00 Date of Discharge Date of Discharge 12/20/16 Primary Diagnosis Primary Diagnosis IMPRESSION: 1. dizziness r/t hypertensive urgency 2. HTN urgency 3. acute bronchitis POA neg sepsis 4. UTI POA neg sepsis 5. asthma 5. anemia CD 6. CKD II 7. hyperlipidemia 8. h/o NSTEMI in Apr 2015 with negative CAD per CC 9. 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 chronic moderate PCL malnutrition 11. DM II chronic insulin with neuropathy hypoglycemia Consults Consults None Procedures Procedures None Labs Labs Laboratory Tests Test 12/18/16 23:03 12/18/16 23:15 12/19/16 02:00 12/19/16 07:09 White Blood Count 9.2 x10^3/uL (4.0-11.0) Red Blood Count 3.64 x10^6/uL (3.50-5.40) Hemoglobin 10.9 g/dL (12.0-15.5) Hematocrit 32.5 % (36.0-47.0) Mean Corpuscular Volume 89 fL (79-100) Mean Corpuscular Hemoglobin 30 pg (25-35) Mean Corpuscular Hemoglobin Concent 34 g/dL (31-37) Red Cell Distribution Width 14.1 % (11.5-14.5) Platelet Count 255 x10^3/uL (140-400) Neutrophils (%) (Auto) 71 % (31-73) Lymphocytes (%) (Auto) 17 % (24-48) Monocytes (%) (Auto) 8 % (0-9) Eosinophils (%) (Auto) 3 % (0-3) Basophils (%) (Auto) 1 % (0-3) Neutrophils # (Auto) 6.6 x10^3uL (1.8-7.7) Lymphocytes # (Auto) 1.6 x10^3/uL (1.0-4.8) Monocytes # (Auto) 0.8 x10^3/uL (0.0-1.1) Eosinophils # (Auto) 0.2 x10^3/uL (0.0-0.7) Basophils # (Auto) 0.1 x10^3/uL (0.0-0.2) Prothrombin Time 12.8 SEC (11.7-14.0) Prothromb Time International Ratio 1.0 (0.8-1.1) D-Dimer (Yen) 1.83 ug/mlFEU (0.00-0.50) Sodium Level 140 mmol/L (136-145) Potassium Level 3.2 mmol/L (3.5-5.1) Chloride Level 101 mmol/L (98-107) Carbon Dioxide Level 29 mmol/L (21-32) Anion Gap 10 (6-14) Blood Urea Nitrogen 13 mg/dL (7-20) Creatinine 0.6 mg/dL (0.6-1.0) Estimated GFR (Cockcroft-Gault) 94.3 Glucose Level 61 mg/dL (70-99) Calcium Level 9.4 mg/dL (8.5-10.1) Creatine Kinase 44 U/L (26-192) Creatine Kinase MB (Mass) 0.5 ng/mL (0.0-3.6) Creatine Kinase MB Relative Index % (0-4) Troponin I Quantitative < 0.017 ng/mL (0.000-0.055) < 0.017 ng/mL (0.000-0.055) HR-Ary-J-Type Natriuretic Peptide 560 pg/mL (0-449) Urine Collection Type Unknown Urine Color Yellow Urine Clarity Clear Urine pH 7.5 Urine Specific [place] 1.010 Urine Protein Negative mg/dL (NEG-TRACE) Urine Glucose (UA) Negative mg/dL (NEG) Urine Ketones (Stick) Negative mg/dL (NEG) Urine Blood Negative (NEG) Urine Nitrite Positive (NEG) Urine Bilirubin Negative (NEG) Urine Urobilinogen Dipstick 0.2 mg/dL (0.2 mg/dL) Urine Leukocyte Esterase Large (NEG) Urine RBC Occ /HPF (0-2) Urine WBC >40 /HPF (0-4) Urine Squamous Epithelial Cells Occ /LPF Urine Renal Epithelial Cells Occ /LPF Urine Bacteria Many /HPF (0-FEW) Urine Mucus Slight /LPF Glucose (Fingerstick) 107 mg/dL (70-99) Test 12/19/16 11:06 12/19/16 16:00 12/20/16 06:05 12/20/16 07:25 Glucose (Fingerstick) 164 mg/dL (70-99) 101 mg/dL (70-99) 47 mg/dL (70-99) White Blood Count 6.0 x10^3/uL (4.0-11.0) Red Blood Count 3.32 x10^6/uL (3.50-5.40) Hemoglobin 9.9 g/dL (12.0-15.5) Hematocrit 30.1 % (36.0-47.0) Mean Corpuscular Volume 91 fL (79-100) Mean Corpuscular Hemoglobin 30 pg (25-35) Mean Corpuscular Hemoglobin Concent 33 g/dL (31-37) Red Cell Distribution Width 14.6 % (11.5-14.5) Platelet Count 218 x10^3/uL (140-400) Neutrophils (%) (Auto) 64 % (31-73) Lymphocytes (%) (Auto) 24 % (24-48) Monocytes (%) (Auto) 9 % (0-9) Eosinophils (%) (Auto) 3 % (0-3) Basophils (%) (Auto) 1 % (0-3) Neutrophils # (Auto) 3.8 x10^3uL (1.8-7.7) Lymphocytes # (Auto) 1.4 x10^3/uL (1.0-4.8) Monocytes # (Auto) 0.6 x10^3/uL (0.0-1.1) Eosinophils # (Auto) 0.2 x10^3/uL (0.0-0.7) Basophils # (Auto) 0.0 x10^3/uL (0.0-0.2) Sodium Level 140 mmol/L (136-145) Potassium Level 4.3 mmol/L (3.5-5.1) Chloride Level 104 mmol/L (98-107) Carbon Dioxide Level 30 mmol/L (21-32) Anion Gap 6 (6-14) Blood Urea Nitrogen 17 mg/dL (7-20) Creatinine 0.7 mg/dL (0.6-1.0) Estimated GFR (Cockcroft-Gault) 79.0 Glucose Level 49 mg/dL (70-99) Calcium Level 9.0 mg/dL (8.5-10.1) Magnesium Level 2.2 mg/dL (1.8-2.4) Medications Medications Medications reviewed and reconciled for discharge. Brief hospital course Brief hospital course This year old male who presented with dizziness was admitted. The following is a summary of her treatment: HTN urgency resume home meds dizziness r/t elevated BP resolved Acute bronchitis duo neb and budesonide Mucinex 600mg bid Rocephin IV DC home VAntin 200mg bid for 7 days UTI c/s pending-f/u culture out patient Rocephin IV Vantin at discharge DM II humR conversion to levemir per pharmacy FSBS/ssi low intensity Conversion NPH/Reg dose per pharmacy: 15u bid hypoglycemia BS 40s asymptomatic, sleeping. OJ BS 75 07:55 =juice. Breakfast soon. DVT/GI prophylaxis SCD/RANDY PPI For more details regarding the past history, family history, social history, surgical history and other details, please refer to History and Physical. She will be discharged home. Please see DC orders. Subjective coughing up green thick phlegm Objective no distress Vitals Vital Signs Date Time Temp Pulse Resp B/P (MAP) Pulse Ox O2 Delivery O2 Flow Rate FiO2 12/20/16 07:31 100 Room Air 12/19/16 23:10 97.9 65 18 110/60 (77) 97.9 Physical Exam General appearance - alert,well appearing, and in no distress Mental Status - alert, oriented to person, place, and time, affect appropriate to mood Head - normal Chest - clear to auscultation, no wheezes, rales or rhonchi, symmetric air entry Heart - S1 and S2 normal Abdomen - soft, nontender, nondistended, obese, BS + Neurological - no acute focal neurological deficits noted. Musculoskeletal - no muscular tenderness noted Extremities - no pedal edema Skin - warm and dry Medications Medications reviewed. Allergy Allergies Coded Allergies Type Severity Reaction Last Updated Verified celecoxib Allergy Intermediate 04/26/16 Yes hydrocodone Allergy Intermediate 07/24/15 Yes itraconazole Allergy Intermediate 07/24/15 Yes metoclopramide Allergy Intermediate 07/24/15 Yes propoxyphene Allergy Intermediate 07/24/15 Yes Follow up Saturday next week Dr. Medina Disposition: Home Comments Discharge Management - 35 minutes. For other details please refer to discharge instructions LUPE MEDINA MD 12/20/16 0932: IM DISCHARGE & PROGRESS NOTES Brief hospital course Brief hospital course The patient was seen and examined by me. Chart reviewed and plan of care formulated. Discussed with, reviewed and agree with ERGONOMICS ENGINEER's notes, plan of care and orders with modifications as necessary. For more details regarding further plans, please refer to the orders. JATIN KEARNS APRN Dec 20, 2016 07:47 LUPE MEDINA MD Dec 20, 2016 09:32
--- NOTE | 2016-12-20 07:59 | DISCH ---
DISCHARGE INSTRUCTIONS Condition on Discharge Condition on Discharge: Stable Activity After Discharge Activity Instructions for Disc: Activity as tolerated Diet after Discharge Diet after Discharge: Cardiac (no concentrated sweets ) Checks after Discharge DC Comment: Check BS before meals, bring log to appt Contacting the DRNithin after DC Call your doctor for: Concerns you may have Follow-Up Follow up with: Dr. Boothe on Saturday Treatment/Equipment after DC Discharge Respiratory Equipmen: Nebulizer (four times daily ) JATIN KEARNS APRN Dec 20, 2016 07:59
[2016-12-20] MEDS ORDERED: GUAI600T47 PO (08:06)
[2016-12-20] MEDS ORDERED: CEFP200T PO (08:06)
[2016-12-20] MEDS: LEVOTHYROXINE 100 MCG TABLET PO SCH (08:47)
[2016-12-20] MEDS: FUROSEMIDE 20 MG TABLET PO SCH (08:47)
[2016-12-20] MEDS: CARVEDILOL 6.25 MG TABLET. PO SCH (08:48)
[2016-12-20] MEDS: PANTOPRAZOLE 40 MG TABLET.DR. PO SCH (08:48)
[2016-12-20] MEDS: LOSARTAN POTASSIUM 50 MG TABLET. PO SCH (08:48)
[2016-12-20] MEDS: MULTIVITAMIN with MINERAL TABLET. PO SCH (08:48)
[2016-12-20] MEDS: cloNIDine HCL 0.2 MG TABLET PO SCH (08:49)
[2016-12-20] MEDS: POLYETHYLENE GLYCOL 3350 17 GM PACKET. PO SCH (08:49)
[2016-12-20] MEDS: POTASSIUM CHLORIDE 20 MEQ TABLET.ER. PO SCH (08:49)
[2016-12-20] MEDS: DICLOFENAC SODIUM 1% TOPICAL GEL 100GM TUBE. TP SCH (08:55)
[2016-12-20] MEDS ORDERED: CHOLECALCIFEROL (VITAMIN D3) 1,000 UNIT TABLET PO SCH (09:00)
[2016-12-20 11:00] VITALS: BP 132/66
[2016-12-21] MEDS ORDERED: INSULIN DETEMIR 300 UNITS/3 ML INSULN.PEN. SQ SCH (11:30)
== END 2016-12-20 12:18 | disposition home or self-care (01) ==
LOC: ER 22:53 → 5 SOUTH 12-19 01:00
PROVIDERS: ADMIT Internal Medicine; ATTEND Internal Medicine
DX: I16.0 Hypertensive urgency (principal); J20.9 Acute bronchitis, unspecified; N39.0 Urinary tract infection, site not specified; J45.909 Unspecified asthma, uncomplicated; D64.9 Anemia, unspecified; I13.0 Hypertensive heart and chronic kidney disease with heart failure and stage 1 through stage 4 chronic kidney disease, or unspecified chronic kidney disease; N18.2 Chronic kidney disease, stage 2 (mild); E78.5 Hyperlipidemia, unspecified; I50.32 Chronic diastolic (congestive) heart failure; I25.5 Ischemic cardiomyopathy; E11.22 Type 2 diabetes mellitus with diabetic chronic kidney disease; E11.43 Type 2 diabetes mellitus with diabetic autonomic (poly)neuropathy; E11.649 Type 2 diabetes mellitus with hypoglycemia without coma; E03.9 Hypothyroidism, unspecified; E66.9 Obesity, unspecified; E78.00 Pure hypercholesterolemia, unspecified; K21.9 Gastro-esophageal reflux disease without esophagitis; K31.84 Gastroparesis; K57.30 Diverticulosis of large intestine without perforation or abscess without bleeding; M17.0 Bilateral primary osteoarthritis of knee; Z82.49 Family history of ischemic heart disease and other diseases of the circulatory system; Z82.5 Family history of asthma and other chronic lower respiratory diseases; Z83.3 Family history of diabetes mellitus; Z86.73 Personal history of transient ischemic attack (TIA), and cerebral infarction without residual deficits; Z87.01 Personal history of pneumonia (recurrent); Z90.49 Acquired absence of other specified parts of digestive tract; Z96.619 Presence of unspecified artificial shoulder joint
CPT/HCPCS: 36415; 70450; 71010; 71275; 80048; 81001; 82550; 82553; 82962; 83735; 83880; 84484; 85025; 85379; 85610; 87086; 93005; 94250; 94640; 94760; 96365; 96366; 96372; 96375; G0378; G0379; J0690; J0696; J1815; J7620; J7626; Q9967; 87186

== ENCOUNTER 2017-01-03 16:27 | Emergency (ER) | payer BC ==
[~2017-01-03] VITALS: Ht 152.4 cm; Wt 58.1 kg
[~2017-01-03 16:27] MED LIST changes: +CEFP200T PO
--- NOTE | 2017-01-03 16:39 | PHYS DOC ---
Past Medical History Past Medical History: Asthma, CHF, Diabetes-Type II, GERD, High Cholesterol, Hypertension, Hyperthyroid, Pneumonia, Renal Disease Additional Past Medical Histor: Thyroid Past Surgical History: Cholecystectomy, , Other Additional Past Surgical Histo: R SHOULDER Alcohol Use: None Drug Use: None Adult General Chief Complaint Chief Complaint: ACCIDENTAL INGESTION HPI HPI Patient is a 86 year old female who presents with feeling depressed over the last week. She states she has no thoughts of harming herself or anyone else just kind of feels sad because [address] of her friends a past way within the last 6 months to year. She states she feels like she has no help from her and she has a do everything for him. She states last night she sprayed raid jaramillo killer in the kitchen around 10 PM and she inhaled some fumes in all night long she felt slightly nauseated. She states she's been eating okay but today the nausea returned. She denies any shortness of breath. She states that she's feels sad and her nausea is reason that she came in the ER. 1. dizziness r/t hypertensive urgency 2. HTN urgency 3. acute bronchitis POA neg sepsis 4. UTI POA neg sepsis 5. asthma 5. anemia CD 6. CKD II 7. hyperlipidemia 8. h/o NSTEMI in Apr 2015 with negative CAD per CC 9. 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 chronic moderate PCL malnutrition 11. 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 : Denies dysuria or hematuria [] Musculoskeletal: Denies back pain or joint pain [] Integument: Denies rash or skin lesions [] Neurologic: Denies headache, focal weakness or sensory changes [] Endocrine: Denies polyuria or polydipsia [] Current Medications Current Medications Current Medications Medications (Trade) Dose Ordered Sig/Hernán Start Time Stop Time Status Last Admin Dose Admin Ondansetron HCl (Zofran) 4 mg 1X ONCE 01/03/17 17:45 01/03/17 17:46 DC 01/03/17 18:21 4 MG Allergies Allergies Allergies Coded Allergies Type Severity Reaction Last Updated Verified celecoxib Allergy Intermediate 04/26/16 Yes hydrocodone Allergy Intermediate 07/24/15 Yes itraconazole Allergy Intermediate 07/24/15 Yes metoclopramide Allergy Intermediate 07/24/15 Yes propoxyphene Allergy Intermediate 07/24/15 Yes Physical Exam Physical Exam Constitutional: Well developed, well nourished, no acute distress, non-toxic appearance. [] HENT: Normocephalic, atraumatic, bilateral external ears normal, oropharynx moist, no oral exudates, nose normal. [] Eyes: PERRLA, EOMI, conjunctiva normal, no discharge. [] Neck: Normal range of motion, no tenderness, supple, no stridor. [] Cardiovascular:Heart rate regular rhythm, no murmur [] Lungs & Thorax: Bilateral breath sounds clear to auscultation [] Abdomen: Bowel sounds normal, soft, no tenderness, no masses, no pulsatile masses. [] Skin: Warm, dry, no erythema, no rash. [] Back: No tenderness, no CVA tenderness. [] Extremities: No tenderness, no cyanosis, no clubbing, ROM intact, no edema. [] Neurologic: Alert and oriented X 3, normal motor function, normal sensory function, no focal deficits noted. [] Psychologic: Affect normal, judgement normal, mood normal. [] Current Patient Data Vital Signs Vital Signs Date Time Temp Pulse Resp B/P (MAP) Pulse Ox O2 Delivery O2 Flow Rate FiO2 01/03/17 19:45 82 20 198/92 (127) 96 Room Air 01/03/17 17:10 98.6 98.6 Lab Values Laboratory Tests Test 01/03/17 17:10 01/03/17 17:55 01/03/17 18:15 01/03/17 18:45 Urine Color Yellow Urine Clarity Clear Urine pH 7.0 Urine Specific Cascade <=1.005 Urine Protein Negative mg/dL (NEG-TRACE) Urine Glucose (UA) Negative mg/dL (NEG) Urine Ketones (Stick) Negative mg/dL (NEG) Urine Blood Negative (NEG) Urine Nitrite Negative (NEG) Urine Bilirubin Negative (NEG) Urine Urobilinogen Dipstick 0.2 mg/dL (0.2 mg/dL) Urine Leukocyte Esterase Negative (NEG) Urine RBC 0 /HPF (0-2) Urine WBC 0 /HPF (0-4) Urine Squamous Epithelial Cells Occ /LPF Urine Bacteria 0 /HPF (0-FEW) Creatine Kinase 62 U/L (26-192) Creatine Kinase MB (Mass) < 0.5 ng/mL (0.0-3.6) Creatine Kinase MB Relative Index % (0-4) Troponin I Quantitative < 0.017 ng/mL (0.000-0.055) < 0.017 ng/mL (0.000-0.055) XI-Fud-U-Type Natriuretic Peptide 494 pg/mL (0-449) H Thyroid Stimulating Hormone (TSH) 2.017 uIU/mL (0.358-3.74) White Blood Count 5.8 x10^3/uL (4.0-11.0) Red Blood Count 3.85 x10^6/uL (3.50-5.40) Hemoglobin 11.5 g/dL (12.0-15.5) L Hematocrit 34.4 % (36.0-47.0) L Mean Corpuscular Volume 89 fL (79-100) Mean Corpuscular Hemoglobin 30 pg (25-35) Mean Corpuscular Hemoglobin Concent 33 g/dL (31-37) Red Cell Distribution Width 13.7 % (11.5-14.5) Platelet Count 271 x10^3/uL (140-400) Neutrophils (%) (Auto) 60 % (31-73) Lymphocytes (%) (Auto) 24 % (24-48) Monocytes (%) (Auto) 10 % (0-9) H Eosinophils (%) (Auto) 4 % (0-3) H Basophils (%) (Auto) 1 % (0-3) Neutrophils # (Auto) 3.5 x10^3uL (1.8-7.7) Lymphocytes # (Auto) 1.4 x10^3/uL (1.0-4.8) Monocytes # (Auto) 0.6 x10^3/uL (0.0-1.1) Eosinophils # (Auto) 0.3 x10^3/uL (0.0-0.7) Basophils # (Auto) 0.1 x10^3/uL (0.0-0.2) Sodium Level 138 mmol/L (136-145) Potassium Level 3.6 mmol/L (3.5-5.1) Chloride Level 103 mmol/L (98-107) Carbon Dioxide Level 30 mmol/L (21-32) Anion Gap 5 (6-14) L Blood Urea Nitrogen 11 mg/dL (7-20) Creatinine 0.6 mg/dL (0.6-1.0) Estimated GFR (Cockcroft-Gault) 94.3 Glucose Level 103 mg/dL (70-99) H Calcium Level 9.2 mg/dL (8.5-10.1) Magnesium Level 2.4 mg/dL (1.8-2.4) Total Bilirubin 0.4 mg/dL (0.2-1.0) Direct Bilirubin 0.1 mg/dL (0.0-0.2) Aspartate Amino Transferase (AST) 20 U/L (15-37) Alanine Aminotransferase (ALT) 13 U/L (14-59) L Alkaline Phosphatase 89 U/L (46-116) Total Protein 8.8 g/dL (6.4-8.2) H Albumin 3.8 g/dL (3.4-5.0) Lipase 194 U/L (73-393) Test 01/03/17 20:01 Troponin I Quantitative < 0.017 ng/mL (0.000-0.055) Laboratory Tests 01/03/17 18:15 Laboratory Tests 01/03/17 18:45 EKG EKG EKG shows sinus rhythm with rate [address] elevations, T-wave inversion in leads 3, aVF, V1 through V4, left axis deviation, QTC 418 ms, as interpreted by me. EKG similar to one performed on December 18, 2016 Radiology/Procedures Radiology/Procedures Chest x-ray did not show any focal consolidations, bony abnormalities, pneumothorax, as interpreted by me. Impressions: Depressed mood Nausea Course & Med Decision Making Course & Med Decision Making Pertinent Labs and Imaging studies reviewed. (See chart for details) Blood pressures in the 190s. She feels better labs are nonacute. Spoke with Dr. Medina who is okay the patient going home and taken there night blood pressure medicines. He will follow him up tomorrow in the office and needed be otherwise an appointment next week. Return precautions given. She is agreeable plan being discharged in stable condition. Dragon Disclaimer Dragon Disclaimer This electronic medical record was generated, in whole or in part, using a voice recognition dictation system. Departure Departure Impression: Primary Impression: Nausea Disposition: 01 HOME, SELF-CARE Condition: IMPROVED Referrals: LUPE MEDINA MD (PCP) Patient Instructions: Nausea, Adult Additional Instructions: You were seen today for your nausea. Her nausea has resolved. I talk to Dr. Medina who is okay to being discharged home. You need to follow up with him. Please take your blood pressure medicines tonight when you get home. Tomorrow you can see Dr. Medina if you are not feeling well or you can return back to ER. JUSTYNA WINTERS MD Jan 03, 2017 16:39
[2017-01-03 17:21] LABS: BILIRUBIN,URINE NEGATIVE (NEG); GLUCOSE,URINE NEGATIVE (NEG); NITRITE,URINE NEGATIVE (NEG); PROTEIN,URINE NEGATIVE (NEG-TRACE); UROBILINOGEN,URINE 0.2 mg/dL (0.2 mg/dL)
[2017-01-03 17:26] LABS: BACTERIA,URINE 0 /HPF (0-FEW); RBC,URINE 0 /HPF (0-2); SQUAMOUS EPITHELIAL CELL,UR OCC /LPF; WBC,URINE 0 /HPF (0-4)
[2017-01-03] MEDS ORDERED: ONDANSETRON PF 4 MG/2 ML VIAL. IV ONE (17:45)
[2017-01-03 18:30] LABS: BASO # 0.1 x10^3/uL (0.0-0.2); BASO % 1 % (0-3); EOS % 4 % (0-3); HEMATOCRIT 34.4 % (36.0-47.0); HEMOGLOBIN 11.5 g/dL (12.0-15.5); LYMPH # 1.4 x10^3/uL (1.0-4.8); LYMPH % 24 % (24-48); MEAN CORPUSCULAR HEMOGLOBIN 30 pg (25-35); MEAN CORPUSCULAR HGB CONC 33 g/dL (31-37); MEAN CORPUSCULAR VOLUME 89 fL (79-100); MONO % 10 % (0-9); NEUT % 60 % (31-73); PLATELET COUNT 271 x10^3/uL (140-400); RED BLOOD COUNT 3.85 x10^6/uL (3.50-5.40); RED CELL DISTRIBUTION WIDTH 13.7 % (11.5-14.5); WHITE BLOOD COUNT 5.8 x10^3/uL (4.0-11.0)
[2017-01-03 18:42] LABS: CKMB MASS < 0.5 ng/mL (0.0-3.6); CREATINE KINASE 62 U/L (26-192)
[2017-01-03 19:18] LABS: CALCIUM 9.2 mg/dL (8.5-10.1); CREATININE 0.6 mg/dL (0.6-1.0); GFR 94.3; POTASSIUM 3.6 mmol/L (3.5-5.1)
[2017-01-03 19:26] LABS: ALBUMIN 3.8 g/dL (3.4-5.0); DIRECT BILIRUBIN 0.1 mg/dL (0.0-0.2); MAGNESIUM 2.4 mg/dL (1.8-2.4); TOTAL BILIRUBIN 0.4 mg/dL (0.2-1.0); TOTAL PROTEIN 8.8 g/dL (6.4-8.2)
[2017-01-03 19:45] VITALS: BP 198/92
--- NOTE | 2017-01-04 06:12 | EKG ---
[facility] [address] [place] [address] Test Date: 2017-01-03 Test Time: 17:22:22 Pat Name: FARZANEH MAHARAJ Department: Room: Gender: F [employer]: : [id number] Requested By: JUSTYNA WINTERS Order Number: [id number] Reading MD: Ambrocio West Measurements Intervals Jackson Rate: 75 P: -27 NM: 140 QRS: -16 QRSD: 90 T: -8 QT: 372 QTc: 418 Interpretive Statements SINUS RHYTHM INCOMPLETE RIGHT BUNDLE BRANCH BLOCK LEFT VENTRICULAR HYPERTROPHY Electronically Signed On 01-07-2017 11:14:18 CDT by Ambrocio West
--- NOTE | 2017-01-04 07:57 | RAD ---
Indication shortness of air. A single view of the chest was obtained and is compared to an examination 12/18/2016. Heart size is slightly enlarged but unchanged. There is no congestive heart failure focal infiltrate or significant pleural fluid collection. No pneumothorax is seen. A right shoulder prosthesis is noted. IMPRESSION: No acute or focal process is seen in the chest
[2017-01-08] MEDS ORDERED: ASPI-482 PO (08:49)
== END 2017-01-03 20:41 | disposition home or self-care (01) ==
LOC: ER 16:27
DX: R11.0 Nausea (principal); F32.9 Major depressive disorder, single episode, unspecified; I13.0 Hypertensive heart and chronic kidney disease with heart failure and stage 1 through stage 4 chronic kidney disease, or unspecified chronic kidney disease; E11.22 Type 2 diabetes mellitus with diabetic chronic kidney disease; I50.9 Heart failure, unspecified; N18.9 Chronic kidney disease, unspecified; E78.5 Hyperlipidemia, unspecified; J45.909 Unspecified asthma, uncomplicated; K21.9 Gastro-esophageal reflux disease without esophagitis; E11.40 Type 2 diabetes mellitus with diabetic neuropathy, unspecified; E11.649 Type 2 diabetes mellitus with hypoglycemia without coma; Z90.49 Acquired absence of other specified parts of digestive tract; Z79.4 Long term (current) use of insulin; Z98.890 Other specified postprocedural states; Z88.5 Allergy status to narcotic agent; Z88.8 Allergy status to other drugs, medicaments and biological substances; Z88.6 Allergy status to analgesic agent
CPT/HCPCS: 36415; 71010; 80048; 80076; 81001; 82553; 83690; 83735; 83880; 84443; 84484; 85025; 93005; 96374; 99285; J2405

== ENCOUNTER 2017-03-14 13:59 | Inpatient (IN) | payer BC ==
[~2017-03-14] VITALS: Ht 154.9 cm; Wt 55.0 kg
[~2017-03-14 13:59] MED LIST changes: +ASPI-482 PO
[2017-03-14 14:51] LABS: BASO % 1 % (0-3); EOS % 2 % (0-3); HEMATOCRIT 33.3 % (36.0-47.0); LYMPH # 1.2 x10^3/uL (1.0-4.8); LYMPH % 18 % (24-48); MEAN CORPUSCULAR HEMOGLOBIN 29 pg (25-35); MEAN CORPUSCULAR HGB CONC 33 g/dL (31-37); MEAN CORPUSCULAR VOLUME 87 fL (79-100); MONO % 7 % (0-9); NEUT % 73 % (31-73); PLATELET COUNT 293 x10^3/uL (140-400); RED BLOOD COUNT 3.83 x10^6/uL (3.50-5.40); RED CELL DISTRIBUTION WIDTH 13.9 % (11.5-14.5); WHITE BLOOD COUNT 6.7 x10^3/uL (4.0-11.0)
[2017-03-14] MEDS ORDERED: ONDANSETRON PF 4 MG/2 ML VIAL. ONE (14:51)
[2017-03-14] MEDS ORDERED: ONDANSETRON PF 4 MG/2 ML VIAL. IV ONE (15:00)
[2017-03-14 15:06] LABS: CALCIUM 9.3 mg/dL (8.5-10.1); CREATININE 0.8 mg/dL (0.6-1.0); GFR 67.7
[2017-03-14 15:17] LABS: ALBUMIN 3.4 g/dL (3.4-5.0); ALBUMIN/GLOBULIN RATIO 0.6 (1.0-1.7); TOTAL BILIRUBIN 0.3 mg/dL (0.2-1.0); TOTAL PROTEIN 8.8 g/dL (6.4-8.2)
--- NOTE | 2017-03-14 15:17 | RAD ---
CT HEAD AND CERVICAL SPINE WO, CT MAXILLOFACIAL WO CONTRAST History: Fall, hit face on ground, facial bruising and swelling Technique: Noncontrast CT imaging was performed of the head, maxillofacial region, and cervical spine, multiplanar reconstruction images submitted. Exposure: One or more of the following individualized dose reduction techniques were utilized for this exam: 1. Automated exposure control.2. Adjustment of the mA and/or KV according to patient size.3. Use of iterative reconstruction technique. Comparison: Head CT 01/04/2017; CT cervical spine exam 11/25/2014 Findings: Head CT: No acute intracranial hemorrhage is identified. There is right frontal scalp hematoma. No acute calvarial abnormality is identified. 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 There is mild supratentorial involutional change, ventricular size within normal limits. There is again scattered ill-defined low-density of the supratentorial white matter bilaterally. There is atherosclerotic calcification bilateral carotid siphons and intradural vertebral arteries. Cervical spine CT: Cervical vertebral body stature and AP alignment are preserved. No acute cervical spine fracture is identified. Posterior osteophytes indent the ventral thecal sac C5-C6, central canal likely narrowed on the order of 7 mm. There is multilevel cervical facet degenerative change. There is atherosclerotic calcification of the carotid arteries in the neck bilaterally. There is mild dextroscoliosis of cervical spine. Maxillofacial CT: There are no air-fluid levels of the paranasal sinuses. Mastoid air cells are aerated. Globes are symmetric in appearance. No significant post septal density is identified. No acute maxillofacial fracture is identified. There is anterior right maxillary sinus mucus retention cyst 1.6 cm. Impression 1. No acute intracranial abnormality is identified. 2. No acute cervical spine fracture is identified. There is likely spinal stenosis on the order of 7 mm C5-C6 by posterior osteophytes. 3. No acute maxillofacial fracture is identified.
[2017-03-14 15:24] LABS: BILIRUBIN,URINE NEGATIVE (NEG); GLUCOSE,URINE NEGATIVE (NEG); NITRITE,URINE POSITIVE (NEG); PH,URINE 6.5; PROTEIN,URINE NEGATIVE (NEG-TRACE)
[2017-03-14 15:31] LABS: BACTERIA,URINE MANY /HPF (0-FEW); SQUAMOUS EPITHELIAL CELL,UR FEW /LPF; WBC,URINE >40 /HPF (0-4)
--- NOTE | 2017-03-14 16:41 | RAD ---
THORACIC SPINE 3V History:Fall, pain Comparison: Thoracic spine CT 11/25/2014 Findings:3 views of the thoracic spine are submitted. Thoracic vertebral body stature and AP lumbar preserved. There is degenerative disc disease of mid to inferior thoracic levels. No acute osseous abnormality is identified by radiographs. Impression: 1.No acute osseous abnormality is identified by radiographs.
--- NOTE | 2017-03-14 16:44 | ED.ADGEN ---
Past Medical History Past Medical History: Asthma, CHF, Depression, Diabetes-Type II, GERD, High Cholesterol, Hypertension, Hyperthyroid, Pneumonia, Renal Disease Additional Past Medical Histor: Thyroid Past Surgical History: Cholecystectomy, , Other Additional Past Surgical Histo: R SHOULDER Alcohol Use: None Drug Use: None Adult General Chief Complaint Chief Complaint: MECHANICAL FALL HPI HPI Patient is a 86 year old woman, history of type 2 diabetes mellitus, hypertension, hyperlipidemia, hypothyroidism, obesity, who presents to the emergency department with a complaint of facial pain and swelling with bruising , along with pain in her right lower extremity and bilateral knees and feet after a fall that occurred days ago. Patient states she did not come to the emergency department until today because she was seen by her family today, and due to their concern about the bruising in her face and or other complaints that prompt her to come to the ED. Patient states that she believes she tripped over a small table while walking back into her bedroom late on Saturday. She states that she fell fully understood the ground landing on her knees, and believes that she struck her face against the wooden floor. She denies loss of consciousness. She denies any preceding symptoms such as dizziness, lightheadedness, nausea, vomiting, chest pain or shortness of breath. She denies similar falls previously. She denies any additional injury since that time. She denies development of any other symptoms aside from pain in her knees and right leg with ambulation, and worsening swelling and bruising in her right face. No headache, no blurred vision, no weakness, numbness or tingling. Patient states that she scooted across the floor, and her helped her onto the couch where she spent Saturday night. She has been ambulating since that time with some discomfort, without significant difficulty. She states she takes a baby aspirin daily, and has been taking all medications as directed by her primary care provider. Patient is a limited historian, but is at baseline mental status per report of her who is at bedside, he also denies any other changes in mentation or other concerns. She has not been taking medications for pain. Review of Systems Review of Systems Constitutional: Denies fever or chills. [] Eyes: Denies change in visual acuity. [] HENT: Denies nasal congestion or sore throat. [] Respiratory: Denies cough or shortness of breath. [] Cardiovascular: Denies chest pain or edema. [] GI: Denies abdominal pain, nausea, vomiting, bloody stools or diarrhea. [] : Denies dysuria. [] Musculoskeletal: Denies back pain, complaining of pain in the bilateral knees and right lower extremity, also pain and swelling on the right side of her face. Integument: Denies rash. [] Neurologic: Denies headache, focal weakness or sensory changes. [] Endocrine: Denies polyuria or polydipsia. [] Lymphatic: Denies swollen glands. [] Psychiatric: Denies depression or anxiety. [] Current Medications Current Medications Current Medications Medications (Trade) Dose Ordered Sig/Hernán Start Time Stop Time Status Last Admin Dose Admin Acetaminophen (Tylenol) 1,000 mg 1X ONCE 03/14/17 17:45 03/14/17 17:46 DC Carvedilol (Coreg) 6.25 mg 1X ONCE 03/14/17 17:45 03/14/17 17:46 DC Ceftriaxone Sodium 1 gm/ Dextrose 50 ml @ 100 mls/hr Q24H 03/14/17 17:15 UNV Ceftriaxone Sodium (Rocephin) 1 gm Q24H 03/15/17 17:00 Clonidine HCl (Catapres) 0.2 mg 1X ONCE 03/14/17 17:45 03/14/17 17:46 DC Fentanyl Citrate (Fentanyl 2ml Vial) 25 mcg PRN Q15MIN PRN 03/14/17 17:15 03/15/17 17:14 Lidocaine (Lidoderm) 1 patch DAILY 03/14/17 17:45 Ondansetron HCl (Zofran) 4 mg 1X ONCE 03/14/17 15:00 03/14/17 15:01 DC 03/14/17 14:54 4 MG Allergies Allergies Allergies Coded Allergies Type Severity Reaction Last Updated Verified celecoxib Allergy Intermediate 04/26/16 Yes hydrocodone Allergy Intermediate 07/24/15 Yes itraconazole Allergy Intermediate 07/24/15 Yes metoclopramide Allergy Intermediate 07/24/15 Yes propoxyphene Allergy Intermediate 07/24/15 Yes Physical Exam Physical Exam Constitutional: Well developed, well nourished, no acute distress, non-toxic appearance. [] HENT: Normocephalic, with hematoma loaded dictated on the 8 frontal crown region , with ecchymosis across the forehead and face, down to the lower cheek region, no swelling surrounding the orbit, no bony tenderness over the nose, mild tenderness to palpation over the right side about a car, without any deformity or crepitus appreciated, full range of motion of the mandible bilateral external ears normal, oropharynx moist, no oral exudates, no hemotympanum, no septal hematoma.[] Eyes: PERRLA, EOMI, conjunctiva normal, no discharge. [] Neck: Normal range of motion, no tenderness, supple, no stridor. [] Cardiovascular:Heart rate regular rhythm, no murmur, S1, S2, no rubs or gallops. Patient with tenderness to palpation across the lateral right rib cage , between ribs 8 and 10, left side is unremarkable, no crepitus, deformity, or external signs of trauma identified, no lesions. [] Lungs & Thorax: Bilateral breath sounds clear to auscultation, no wheezing, rhonchi, rales. [] plenty Abdomen: Bowel sounds normal, soft, no tenderness, no masses, no pulsatile masses. [] Skin: Warm, dry, no erythema, no rash. [] Back: No tenderness, no CVA tenderness. [] Extremities: Patient with ecchymosis noted over both knees, patient with evidence of chronic changes consistent with arthritis, tenderness throughout both knees, patient also experiencing pain up to the mid femur region on the right, without any evidence of deformity or focal bony point tenderness, pelvis is stable to rock and painless, no pain in the upper extremities, full range of motion without evidence of injury or deformity, no cyanosis, no clubbing, ROM intact, no edema. [] Neurologic: Alert and oriented X 3, normal motor function, normal sensory function, no focal deficits noted. [] Psychologic: Affect normal, judgement normal, mood normal. [] Current Patient Data Vital Signs Vital Signs Date Time Temp Pulse Resp B/P (MAP) Pulse Ox O2 Delivery O2 Flow Rate FiO2 03/14/17 17:43 72 18 95 03/14/17 14:12 98.2 213/88 (129) Room Air 98.2 Lab Values Laboratory Tests Test 03/14/17 14:17 03/14/17 15:13 White Blood Count 6.7 x10^3/uL (4.0-11.0) Red Blood Count 3.83 x10^6/uL (3.50-5.40) Hemoglobin 11.0 g/dL (12.0-15.5) L Hematocrit 33.3 % (36.0-47.0) L Mean Corpuscular Volume 87 fL (79-100) Mean Corpuscular Hemoglobin 29 pg (25-35) Mean Corpuscular Hemoglobin Concent 33 g/dL (31-37) Red Cell Distribution Width 13.9 % (11.5-14.5) Platelet Count 293 x10^3/uL (140-400) Neutrophils (%) (Auto) 73 % (31-73) Lymphocytes (%) (Auto) 18 % (24-48) L Monocytes (%) (Auto) 7 % (0-9) Eosinophils (%) (Auto) 2 % (0-3) Basophils (%) (Auto) 1 % (0-3) Neutrophils # (Auto) 4.8 x10^3uL (1.8-7.7) Lymphocytes # (Auto) 1.2 x10^3/uL (1.0-4.8) Monocytes # (Auto) 0.4 x10^3/uL (0.0-1.1) Eosinophils # (Auto) 0.1 x10^3/uL (0.0-0.7) Basophils # (Auto) 0.0 x10^3/uL (0.0-0.2) Sodium Level 135 mmol/L (136-145) L Potassium Level 4.0 mmol/L (3.5-5.1) Chloride Level 100 mmol/L (98-107) Carbon Dioxide Level 26 mmol/L (21-32) Anion Gap 9 (6-14) Blood Urea Nitrogen 15 mg/dL (7-20) Creatinine 0.8 mg/dL (0.6-1.0) Estimated GFR (Cockcroft-Gault) 67.7 BUN/Creatinine Ratio 19 (6-20) Glucose Level 204 mg/dL (70-99) H Calcium Level 9.3 mg/dL (8.5-10.1) Total Bilirubin 0.3 mg/dL (0.2-1.0) Aspartate Amino Transferase (AST) 29 U/L (15-37) Alanine Aminotransferase (ALT) 24 U/L (14-59) Alkaline Phosphatase 90 U/L (46-116) Troponin I Quantitative < 0.017 ng/mL (0.000-0.055) Total Protein 8.8 g/dL (6.4-8.2) H Albumin 3.4 g/dL (3.4-5.0) Albumin/Globulin Ratio 0.6 (1.0-1.7) L Urine Collection Type Void Urine Color Straw Urine Clarity Cloudy Urine pH 6.5 Urine Specific [place] 1.010 Urine Protein Negative mg/dL (NEG-TRACE) Urine Glucose (UA) Negative mg/dL (NEG) Urine Ketones (Stick) Negative mg/dL (NEG) Urine Blood Trace (NEG) Urine Nitrite Positive (NEG) Urine Bilirubin Negative (NEG) Urine Urobilinogen Dipstick 1.0 mg/dL (0.2 mg/dL) Urine Leukocyte Esterase Large (NEG) Urine RBC 1-2 /HPF (0-2) Urine WBC >40 /HPF (0-4) Urine Squamous Epithelial Cells Few /LPF Urine Bacteria Many /HPF (0-FEW) Laboratory Tests 03/14/17 14:17 Laboratory Tests 03/14/17 14:17 EKG EKG EC: Sinus rhythm, heart rate 75 beats are minute, left axis deviation, QTC of 402, PA of 112, QRS of 88, contour normality is noted in the anterior septal leads, with T-wave inversions noted in V3 and V4, with T-wave flattening in V5, mild baseline artifact noted, T-wave inversions also noted in the inferior leads as stated, abnormal ECG, does not meet STEMI criteria. As interpreted by me. Radiology/Procedures Radiology/Procedures [][facility] [address] [place] [address] IMAGING REPORT Signed PATIENT: FARZANEH MAHARAJ ACCOUNT: [id number] : 1930 LOCATION: ER AGE: 86 SEX: F EXAM [id number] STATUS: REG ER ORD. PHYSICIAN: KELLY ABREU DO REASON: fall/injury PROCEDURE: CT HEAD AND CERVICAL SPINE WO; CT MAXILLOFACIAL WO CONTRAST CT HEAD AND CERVICAL SPINE WO, CT MAXILLOFACIAL WO CONTRAST History: Fall, hit face on ground, facial bruising and swelling Technique: Noncontrast CT imaging was performed of the head, maxillofacial region, and cervical spine, multiplanar reconstruction images submitted. Exposure: One or more of the following individualized dose reduction techniques were utilized for this exam: 1. Automated exposure control.2. Adjustment of the mA and/or KV according to patient size.3. Use of iterative reconstruction technique. Comparison: Head CT 01/04/2017; CT cervical spine exam 11/25/2014 Findings: Head CT: No acute intracranial hemorrhage is identified. There is right frontal scalp hematoma. No acute calvarial abnormality is identified. 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 There is mild supratentorial involutional change, ventricular size within normal limits. There is again scattered ill-defined low-density of the supratentorial white matter bilaterally. There is atherosclerotic calcification bilateral carotid siphons and intradural vertebral arteries. Cervical spine CT: Cervical vertebral body stature and AP alignment are preserved. No acute cervical spine fracture is identified. Posterior osteophytes indent the ventral thecal sac C5-C6, central canal likely narrowed on the order of 7 mm. There is multilevel cervical facet degenerative change. There is atherosclerotic calcification of the carotid arteries in the neck bilaterally. There is mild dextroscoliosis of cervical spine. Maxillofacial CT: There are no air-fluid levels of the paranasal sinuses. Mastoid air cells are aerated. Globes are symmetric in appearance. No significant post septal density is identified. No acute maxillofacial fracture is identified. There is anterior right maxillary sinus mucus retention cyst 1.6 cm. Impression 1. No acute intracranial abnormality is identified. 2. No acute cervical spine fracture is identified. There is likely spinal stenosis on the order of 7 mm C5-C6 by posterior osteophytes. 3. No acute maxillofacial fracture is identified. DICTATED and SIGNED BY: GURWINDER MURGUIA MD DATE: 03/14/17 4357 CC: KELLY ABREU DO; AMAN BOOTHE MD ~ [facility] [address] [place] [address] IMAGING REPORT Signed PATIENT: FARZANEH MAHARAJ ACCOUNT: [id number] : 1930 LOCATION: ER AGE: 86 SEX: F EXAM STATUS: REG ER ORD. PHYSICIAN: KELLY ABREU DO REASON: fall/ r sided rib pain PROCEDURE: FOOT BILAT 3V FOOT BILAT 3V History:Fall, pain Comparison: 10/06/2007 Findings:3 views of the bilateral feet submitted. There is bone demineralization. There is now slightly displaced intra-articular fracture of the left first proximal phalanx. There is also intra-articular, slightly displaced fracture involving the left second proximal phalanx. There are calcaneal enthesophytes bilaterally. There is slightly displaced fracture of the right second proximal phalanx with intra-articular extent, also slightly angulated fracture involving the right third proximal phalanx. Impression: 1.There are fractures bilaterally, on the left involving the first proximal phalanx and the second proximal phalanx and on the right involving the second proximal phalanx and the third proximal phalanx. There is bone demineralization. DICTATED and SIGNED BY: GURWINDER MURGUIA MD DATE: 03/14/171648 CC: KELLY ABREU DO; AMAN BOOTHE MD ~ Impressions: [facility] [address] [facility] [address] [place], [place] [id number] IMAGING REPORT Signed PATIENT: FARZANEH MAHARAJ ACCOUNT: [id number] : 1930 LOCATION: ER AGE: 86 SEX: F EXAM STATUS: REG ER ORD. PHYSICIAN: KELLY ABREU DO REASON: fall/ r sided rib pain PROCEDURE: KNEE BILAT 4V KNEE BILAT 4V History:Fall, pain Comparison: 10/06/2007 Findings:4 views bilateral knees are submitted for a total of 8 views. There is bone demineralization. No acute fracture is identified. There is chondrocalcinosis. There is osteoarthritic change of the bilateral knees with more severe narrowing of the lateral compartment joint space of the right knee and of the medial compartment joint space left knee. There is vascular calcification. There is also left greater than right patellofemoral joint space narrowing. Impression: 1.No acute fracture is identified. There is chondrocalcinosis and osteoarthritic change of the bilateral knees. There is bone demineralization. DICTATED and SIGNED BY: GURWINDER MURGUIA MD DATE: 03/14/171636 CC: KELLY ABREU DO; AMAN BOOTHE MD ~ [facility] [id number] [place] [address] IMAGING REPORT Signed PATIENT: FARZANEH MAHARAJ ACCOUNT: [id number] : 1930 LOCATION: ER AGE: 86 SEX: F EXAM STATUS: REG ER ORD. PHYSICIAN: KELLY ABREU DO REASON: fall/ r sided rib pain PROCEDURE: KNEE BILAT 4V KNEE BILAT 4V History:Fall, pain Comparison: 10/06/2007 Findings:4 views bilateral knees are submitted for a total of 8 views. There is bone demineralization. No acute fracture is identified. There is chondrocalcinosis. There is osteoarthritic change of the bilateral knees with more severe narrowing of the lateral compartment joint space of the right knee and of the medial compartment joint space left knee. There is vascular calcification. There is also left greater than right patellofemoral joint space narrowing. Impression: 1.No acute fracture is identified. There is chondrocalcinosis and osteoarthritic change of the bilateral knees. There is bone demineralization. DICTATED and SIGNED BY: GURWINDER MURGUIA MD DATE: 03/14/171636 CC: KELLY ABREU DO; AMAN BOOTHE MD ~ [facility] [place] [id number] [place] [address] IMAGING REPORT Signed PATIENT: FARZANEH MAHARAJ ACCOUNT: [id number] : 1930 LOCATION: ER AGE: 86 SEX: F EXAM STATUS: REG ER ORD. PHYSICIAN: KELLY ABREU DO REASON: fall/ r sided rib pain PROCEDURE: HIP RIGHT 2V WITH PELVIS HIP RIGHT 2V WITH PELVIS History:Fall, pain Comparison: None Findings:Single view of the pelvis and 2 additional views of the right hip are submitted. No acute fracture is identified by radiographs. Right femoral head articulates normally with the acetabulum. There is some degenerative change of the hips bilaterally. Sacral arcuate lines are preserved. There is degenerative change of the pubic symphysis. Impression: 1.No acute fracture is identified by radiographs. DICTATED and SIGNED BY: GURWINDER MURGUIA MD DATE: 03/14/17 1645 CC: KLELY ABREU DO; AMAN BOOTHE MD ~ [place] [place] [id number] [place], [place] [id number] IMAGING REPORT Signed PATIENT: FARZANEH MAHARAJ ACCOUNT: [id number] : 1930 LOCATION: ER AGE: 86 SEX: F EXAM STATUS: REG ER ORD. PHYSICIAN: KELLY ABREU DO REASON: fall/ r sided rib pain PROCEDURE: THORACIC SPINE 3V THORACIC SPINE 3V History:Fall, pain Comparison: Thoracic spine CT 11/25/2014 Findings:3 views of the thoracic spine are submitted. Thoracic vertebral body stature and AP lumbar preserved. There is degenerative disc disease of mid to inferior thoracic levels. No acute osseous abnormality is identified by radiographs. Impression: 1.No acute osseous abnormality is identified by radiographs. DICTATED and SIGNED BY: GURWINDER MURGUIA MD DATE: 03/14/17 1436 CC: KELLY ABREU DO; AMAN BOOTHE MD ~ [facility] [address] [place] [address] IMAGING REPORT Signed PATIENT: FARZANEH MAHARAJ ACCOUNT: [id number] : 1930 LOCATION: ER AGE: 86 SEX: F EXAM STATUS: REG ER ORD. PHYSICIAN: KELLY ABREU DO REASON: fall/ r sided rib pain- C-collar cleared @ 1530 PROCEDURE: RIBS RIGHT AND PA CHEST RIBS RIGHT AND PA CHEST History:fall/ r sided rib pain Comparison: 01/03/2017 Findings:Single view of the chest and 2 additional views right ribs are submitted. Cardiac silhouette is stable, borderline enlarged. There are low lung lines, poor inspiration. There is atherosclerotic calcification near aortic arch. There is right shoulder arthroplasty. There has been cholecystectomy. There is no lobar consolidation, pleural fluid, pneumothorax. There is slightly displaced right lateral ninth rib fracture, also slightly displaced right lateral 10th rib fracture. Impression: 1.There are slightly displaced right lateral ninth and 10th rib fractures, no pneumothorax. DICTATED and SIGNED BY: GURWINDER MURGUIA MD DATE: 03/14/17 1782 CC: KELLY ABREU DO; AMAN BOOTHE MD ~ Course & Med Decision Making Course & Med Decision Making Pertinent Labs and Imaging studies reviewed. (See chart for details) Due to patient's age, with presence of head trauma facial trauma, and concern for distracting injury, c-collar placed upon time of evaluation in the ED. Patient was agreeable to receiving imaging of head, neck, maxillofacial, right ribs and chest, right hip and femur, also bilateral knees and bilateral feet. Patient's c-collar was cleared, no evidence of cervical abnormality or intercranial normality. Patient also had no evidence of facial fractures. However, patient was noted to have minimally displaced ninth and 10th lateral right rib fractures, and also fractures of multiple phalanxes of bilateral feet. No other injuries were identified. Additionally, patient was noted have a nitrate positive urinary tract infection with greater than 40 white blood cells in the urine. Mild hyperglycemia, with a glucose of 204, consistent with patient 's known type 2 diabetes mellitus. Patient received oral analgesia with Tylenol in the emergency department, he states that she is having no pain when she attempts to move. Concern for multiple rib fractures in this elderly patient with limited ability to ambulate secondary to both pain and bilateral foot fractures. I did discuss findings with patient at bedside, she is agreeable for admission to the hospital for management of her pain, safety, including assess from a tree and treatment of her urinary tract infection with IV antibiotics. Findings as above discussed with Dr. Boothe the patient's primary care provider, patient was accepted to his service as a full admission to the medical telemetry floor with ceftriaxone and electrodynamicist in the emergency department, will continue on the floor, along with incentive spirometry, Lidoderm patch applied to rib cage, analgesia, and evaluation by PT OT, and close monitoring. Patient remained stable and comfortable during her ED course awaiting transfer to the floor without issue. Dragon Disclaimer Dragon Disclaimer This electronic medical record was generated, in whole or in part, using a voice recognition dictation system. Departure Impression: Primary Impression: UTI (urinary tract infection) Additional Impressions: Multiple rib fractures Fall at home Disposition: 09 ADMITTED INPATIENT Admitting Physician: Aman Boothe Condition: IMPROVED Problem Qualifiers KELLY ABREU DO Mar 14, 2017 16:43
--- NOTE | 2017-03-14 16:45 | RAD ---
RIGHT FEMUR XRAY History:Fall, pain Comparison: None Findings:4 views of the right femur are submitted. No acute fracture or dislocation is identified. There is osteoarthritic change and chondrocalcinosis of the right knee. Impression: 1.No acute osseous abnormality is identified.
--- NOTE | 2017-03-14 16:51 | RAD ---
HIP RIGHT 2V WITH PELVIS History:Fall, pain Comparison: None Findings:Single view of the pelvis and 2 additional views of the right hip are submitted. No acute fracture is identified by radiographs. Right femoral head articulates normally with the acetabulum. There is some degenerative change of the hips bilaterally. Sacral arcuate lines are preserved. There is degenerative change of the pubic symphysis. Impression: 1.No acute fracture is identified by radiographs.
--- NOTE | 2017-03-14 16:53 | RAD ---
RIBS RIGHT AND PA CHEST History:fall/ r sided rib pain Comparison: 01/03/2017 Findings:Single view of the chest and 2 additional views right ribs are submitted. Cardiac silhouette is stable, borderline enlarged. There are low lung lines, poor inspiration. There is atherosclerotic calcification near aortic arch. There is right shoulder arthroplasty. There has been cholecystectomy. There is no lobar consolidation, pleural fluid, pneumothorax. There is slightly displaced right lateral ninth rib fracture, also slightly displaced right lateral 10th rib fracture. Impression: 1.There are slightly displaced right lateral ninth and 10th rib fractures, no pneumothorax.
--- NOTE | 2017-03-14 16:57 | RAD ---
FOOT BILAT 3V History:Fall, pain Comparison: 10/06/2007 Findings:3 views of the bilateral feet submitted. There is bone demineralization. There is now slightly displaced intra-articular fracture of the left first proximal phalanx. There is also intra-articular, slightly displaced fracture involving the left second proximal phalanx. There are calcaneal enthesophytes bilaterally. There is slightly displaced fracture of the right second proximal phalanx with intra-articular extent, also slightly angulated fracture involving the right third proximal phalanx. Impression: 1.There are fractures bilaterally, on the left involving the first proximal phalanx and the second proximal phalanx and on the right involving the second proximal phalanx and the third proximal phalanx. There is bone demineralization.
[2017-03-14] MEDS ORDERED: fentaNYL PF VIAL 100 MCG/2 ML VIAL IV PRN (17:15)
[2017-03-14] MEDS ORDERED: cloNIDine HCL 0.1 MG TABLET PO ONE (17:45)
[2017-03-14] MEDS ORDERED: ACETAMINOPHEN 500 MG TABLET PO ONE (17:45)
[2017-03-14] MEDS ORDERED: CARVEDILOL 6.25 MG TABLET. PO ONE (17:45)
[2017-03-14] MEDS: LIDOCAINE (700MG/PATCH) PATCH. TD SCH (17:55)
[2017-03-14 18:40] VITALS: BP 132/75
[2017-03-14] MEDS: LOSARTAN POTASSIUM 50 MG TABLET. PO SCH (21:50)
[2017-03-14 23:05] VITALS: BP 122/66
[2017-03-15 03:12] VITALS: BP 176/73
[2017-03-15] MEDS ORDERED: cloNIDine HCL 0.2 MG TABLET PO SCH ×2 (06:00→10:00)
[2017-03-15 07:00] VITALS: BP 165/64
[2017-03-15] MEDS: LOSARTAN POTASSIUM 50 MG TABLET. PO SCH ×2 (08:49→20:37)
[2017-03-15] MEDS: cloNIDine HCL 0.2 MG TABLET PO SCH ×2 (08:49→20:36)
[2017-03-15] MEDS: CARVEDILOL 6.25 MG TABLET. PO SCH ×2 (08:50→17:08)
[2017-03-15] MEDS: LIDOCAINE (700MG/PATCH) PATCH. TD SCH (08:50)
[2017-03-15] MEDS ORDERED: NON FORMULARY ITEM (Mometasone/Formoterol (Dulera 200 Mcg/5 Mcg Inhaler) 2 PUFF) IH SCH (09:00)
--- NOTE | 2017-03-15 09:09 | EKG ---
[facility] [address] [place] [address] Test Date: 2017-03-14 Test Time: 14:13:08 Pat Name: FARZANEH MAHARAJ Department: Room: 406 Gender: F Facilities Maintenance Technician: : 1930 Requested By: KELLY ABREU Order Number: [id number] Reading MD: Juan Barriga Measurements Intervals [place] Rate: 75 P: -27 CO: 112 QRS: -15 QRSD: 88 T: -13 QT: 358 QTc: 402 Interpretive Statements SINUS RHYTHM LEFT ATRIAL ABNORMALITY LEFTWARD AXIS T ABNORMALITY IN ANTEROSEPTAL LEADS INFERIOR LEADS ABNORMAL ECG Electronically Signed On 03-25-2017 14:06:53 STUDENT ADMISSIONS CLERK by Juan Barriga
[2017-03-15] MEDS: BUDESONIDE 0.5 MG/2 ML NEBU. NEB SCH ×2 (09:30→13:58)
[2017-03-15] MEDS: IPRATRPIUM/ALBUTEROL 0.5/2.5MG 3 ML NEBU. NEB SCH ×4 (09:30→20:13)
[2017-03-15] MEDS: ASPIRIN ENTERIC COATED 81 MG TABLET.DR. PO SCH (09:39)
[2017-03-15] MEDS: MULTIVITAMIN with MINERAL TABLET. PO SCH (09:39)
[2017-03-15] MEDS: POTASSIUM CHLORIDE 20 MEQ TABLET.ER. PO SCH (09:39)
[2017-03-15] MEDS: FUROSEMIDE 20 MG TABLET PO SCH (09:39)
[2017-03-15] MEDS: CHOLECALCIFEROL (VITAMIN D3) 1,000 UNIT TABLET PO SCH (09:39)
[2017-03-15] MEDS: POLYETHYLENE GLYCOL 3350 17 GM PACKET. PO SCH (09:40)
[2017-03-15] MEDS: DICLOFENAC SODIUM 1% TOPICAL GEL 100GM TUBE. TP SCH ×3 (09:40→21:00)
[2017-03-15] MEDS: FAMOTIDINE 20 MG TABLET. PO SCH (09:40)
[2017-03-15] MEDS: LEVOTHYROXINE 100 MCG TABLET PO SCH (09:40)
[2017-03-15] MEDS: INSULIN ASPART 300 UNITS/3 ML INSULN.PEN SQ SCH ×2 (09:52→16:30)
[2017-03-15 11:00] VITALS: BP 121/54
--- NOTE | 2017-03-15 11:18 | CONS ---
DATE OF CONSULTATION: 03/15/2017 ATTENDING PHYSICIAN: Dr. Aman Boothe. The patient was seen at the request of Dr. Boothe for rehab evaluation. HISTORY OF PRESENT ILLNESS: This is an 86-year-old female with type 2 diabetes mellitus, hypertension, hyperlipidemia, hypothyroidism, obesity, degenerative joint disease of her knees for which she goes to Dr. Sahu for injections on an as-needed basis. She usually walks using a cane. She fell earlier this week, did not come to the hospital at that time. Her family noted her with bruising of her face and she is having some discomfort in her feet and rib cage area and the knees, so she was admitted through the Emergency Room. She apparently fell on 03/09/2017 after tripping over a small table while walking back into her bedroom. This happened at nighttime. She did not lose any consciousness. She landed on her knees and struck her face on the wooden floor. The patient had decreased acuity of hearing. She usually walks using a cane. She had two steps to enter the house plus basement. She does not go to the basement anymore. While climbing the front two steps, her helps her. ALLERGIES: THE PATIENT IS A KNOWN ALLERGIC TO CELEBREX, ITRACONAZOLE, METOCLOPRAMIDE, AND PROPOXYPHENE. PAST SURGICAL HISTORY: The patient is status post cholecystectomy, , right shoulder surgery. PAST MEDICAL HISTORY: Includes congestive heart failure, asthmatic bronchitis, depression, gastroesophageal reflux disease, previous pneumonia, renal disease. The patient since admission had radiological studies including CT scan and x-rays done. X-rays of her feet revealed left first proximal phalanx, second proximal phalanx and on the right side, second proximal and third proximal phalanx fractures with bony demineralization; slightly displaced fracture of the right second proximal phalanx with intact articular extent, also slightly angulated fracture involving right third proximal phalanx; slightly displaced intra-articular fracture of left first proximal phalanx, intra-articular slightly displaced fracture involving left second proximal phalanx, and calcaneal bone spurs noted both distally and proximally. X-rays of her knees revealed chondrocalcinosis and osteoarthritic changes and bony demineralization. Maxillofacial CT scan failed to reveal any acute intracranial abnormalities. She had degenerative disk disease and degenerative joint disease of cervical vertebrae with some degree of cervical spinal stenosis at C5-C6. X-rays of her hip and femur failed to reveal any acute abnormalities. The patient denies any trouble with her bowel or bladder control or swallowing. PHYSICAL EXAMINATION: Today revealed an elderly female. She is alert, oriented to time, place, person and circumstance and follows commands appropriately, moves all 4 extremities voluntarily where she had 4+/5 grade muscle strength. She has some tenderness to palpation at the distal parts of both legs and also left calf tenderness and also tenderness to palpation over the second and third toes on the right and first and second toes on the left with some edema and redness. She also had tenderness to palpation over left tendo Achilles. She had bruised area over her face and both knees. She has some tenderness to palpation over right lower ribcage area laterally. She had no significant tenderness to palpation over cervical, thoracic or lumbar spine area. Straight leg raising test is negative bilaterally. She had crepitus on range of motion on both knee joints with mild knee joint effusion and some varus deformity of her right knee. She had pain-free range of motion on both hip joints. She had equal perception of touch and pinprick sensation bilaterally. Overall, she had 4+/5 grade muscle strength. She had decreased to absent deep tendon reflexes overall. She is independent with bed mobility and transfers. Once up, she had some difficulty walking re-using a cane, but she walked better using a roller walker. She walks with a wide-based gait. Her cane is too long for her. 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 The patient with known asthmatic bronchitis, congestive heart failure, depression, gastroesophageal reflux disease, hyperlipidemia, hypertension, hypothyroidism, chronic kidney disease, pneumonia and rule out deep vein thrombosis, left lower extremity. She also had tendinitis, left heel cord, but this pain is not limiting her getting up and walking. RECOMMENDATIONS: To obtain venous duplex Doppler studies of her left lower extremity to rule out any deep vein thrombosis, to provide her with a roller walker for use. Agree with the plan for physical therapy and occupational therapy. Hopefully, home when medically stable with outpatient followup. Dr. Boothe, I appreciate asking me to participate in the care of this interesting patient. I will be glad to follow her with you as needed for her rehabilitation. BETH JOHNSON MD DR: ANGELIC/bipin JOB#: [id number] / [id number]
--- NOTE | 2017-03-15 11:33 | PDOC ---
Provider Note Provider Note Patient seen. History and Physical dictated. See dictation# [id number] LUPE MEDINA MD Mar 15, 2017 11:33
--- NOTE | 2017-03-15 12:08 | HP ---
ADMIT DATE: 03/15/2017 ADMITTING PHYSICIAN: Dr. Lupe Medina. HISTORY OF PRESENT ILLNESS: This 86-year-old female fell at home last Saturday that is 5 days ago prior to admission. She was trying to close her 's bedrooms door at night. The lights were off and she fell and she might have hit a table. She did not think much of it, but she continued to get worse. She does not remember passing out. She had increased swelling and bruising of the face. Because of her worsening pain and condition, family brought her to the Emergency Room yesterday. In the Emergency Room, she was noted to have a right 9th and 10th rib fractures as well as fractures of both feet. Because of her multiple fractures, abnormal urine suggestive of UTI, it was decided to admit the patient for further evaluation and management. SYSTEMS REVIEW: At present time, the patient denies any dyspnea or chest pain. She does admit to some cough. She denies any fever or chills. She does have polyuria, but denies any dysuria. She denies any abdominal pain. She does admit to pain in both feet. She denies any dizziness at this time. She does admit to some joint pains including chronic back pain. Other systems were reviewed and are negative. Because of her multiple medical problems, the patient was admitted for further evaluation and management. SYSTEMS REVIEW: As noted in the history of present illness, the patient was last admitted here in 11/2016. PAST MEDICAL HISTORY: The patient has a history of diastolic congestive heart failure, ejection fraction normal, history of hypertension, non-ST elevation myocardial infarction in 04/2015, hyperlipidemia. No history of coronary artery disease, had a cardiac cath before. The patient also has recurrent UTI, history of asthma, gastroesophageal reflux disease, history of gastritis, gastroparesis and diverticulosis in colon, history of anemia, osteoarthritis bilateral knees, allergic rhinitis, chronic renal insufficiency, CKD2, diabetes type 2, chronic insulin with neuropathy, hypothyroidism. PAST SURGICAL HISTORY: The patient had total shoulder arthroplasty for fractured humerus, had cholecystectomy in 1979, x 3. FAMILY HISTORY: Mother had coronary artery disease. Sister has diabetes. Mother and sister have hypertension and father had emphysema. SOCIAL HISTORY: The patient is . No history of smoking, alcoholism or drug abuse. REVIEW OF SYSTEMS: As noted in the history of present illness. ALLERGIES: THE PATIENT IS ALLERGIC TO CELECOXIB, HYDROCODONE, ITRACONAZOLE, METOCLOPRAMIDE AND PROPOXYPHENE. PHYSICAL EXAMINATION: VITAL SIGNS: Temperature 97.8, pulse 79 per minute, blood pressure 176/73 mmHg, respirations 16 per minute. GENERAL: The patient is an elderly female who is alert, oriented and not in any acute distress. EYES: Pupils reacting to light. Conjunctivae pale. Sclerae are muddy. HENT: Mild congestion of throat. SKIN: Warm and dry. The patient has extensive bruising on her face, especially on the right side, covering the right forehead, nose on both sides, right periorbital area, right side of the face, also extending a little bit towards the left side. The patient also has some swelling. NECK: Supple. JVP normal. No thyromegaly. Trachea midline. LUNGS: Decreased breath sounds at bases. Occasional bilateral basilar rales. CARDIOVASCULAR SYSTEM: S1, S2 regular. ABDOMEN: Soft, nontender, no guarding, no rigidity. Bowel sounds present. EXTREMITIES: The patient has some tenderness and swelling, more on the left foot distally than on the right foot. CENTRAL NERVOUS SYSTEM: Alert and oriented, mild weakness. LABORATORY FINDINGS: WBC count 6.7, hemoglobin 11. Sodium 135; potassium 4; BUN 15; creatinine 0.8; glucose 204, 217, 168; total protein 8.8, albumin 3.4. X-rays of the foot revealed fractures of both feet on the left involving the first proximal phalanx and the second proximal phalanx and on the right involving the second proximal phalanx and the third proximal phalanx. X-rays of the knee do not show any fractures. Maxillofacial CT shows no fractures. CT scan of cervical spine shows no fracture, but likely spinal stenosis about 7 mm at C5-C6 level. X-rays of the thoracic spine show no fractures. Re-x-rays of the chest and the ribs show fractures of the right lateral 9 and 10 ribs, slightly displaced, no pneumothorax. X-rays of the femur and hip and pelvis are negative for fractures. IMPRESSION: 1. Fall with multiple fractures including right 9th and 10th rib fractures. 2. Bilateral feet fractures. 3. Acute urinary tract infection. 4. Diabetes mellitus type 2 with neuropathy. 5. Hyperglycemia. 6. Hypertension, not controlled. 7. Asthma. 8. Anemia of chronic disease. 9. Chronic kidney disease 2. 10. Hyperlipidemia. 11. Anxiety, improving. 12. History of non-ST elevation myocardial infraction 04/2015 with negative coronary artery disease per cardiac catheterization. 13. Ischemic cardiomyopathy with a history of congestive heart failure, chronic, ejection fraction 25%, Takotsubo syndrome. 14. Diabetes mellitus type 2 with neuropathy, not controlled. PLAN: Admit to the hospital. Consult Dr. Isaac for reevaluation and management. I started her on IV Rocephin. Follow up urine culture. Condition and treatment discussed with the patient and the daughter. Start physical therapy and monitor her balance. For details, please refer to the orders. LUPE MEDINA MD DR: KAIN/nts JOB#: [id number] / [id number]
--- NOTE | 2017-03-15 12:40 | RAD ---
EXAM: Bilateral knees AP standing HISTORY: Bilateral knee pain, degenerative joint disease. COMPARISON: None. FINDINGS: On the right, there is severe lateral compartmental osteoarthritis. The joint space is effaced with exaggeration of the normal valgus. On the left, there is moderate to severe medial compartmental osteoarthritis with preserved alignment. No fractures are identified. Osteopenia is moderate to severe. Chondrocalcinosis of the menisci and atherosclerotic calcifications are noted. IMPRESSION: 1. Severe right and moderate to severe left osteoarthritis as above.
[2017-03-15 15:00] VITALS: BP 141/43
[2017-03-15] MEDS: cefTRIAXone IV Push 1 GM VIAL. IVP SCH (17:09)
[2017-03-15 19:00] VITALS: BP 169/71
[2017-03-15] MEDS: ACETAMINOPHEN 500 MG TABLET PO PRN (19:19)
[2017-03-15] MEDS: LACTOBACILLUS RHAMNOSUS GG 1 CAPSULE. PO SCH (20:34)
[2017-03-15] MEDS: CETIRIZINE HCL 10 MG TABLET. PO SCH (20:37)
[2017-03-15] MEDS: MONTELUKAST SODIUM 10 MG TABLET. PO SCH (20:37)
[2017-03-15 23:00] VITALS: BP 150/74
[2017-03-16 03:00] VITALS: BP 169/72
[2017-03-16 04:49] LABS: BASO % 1 % (0-3); EOS % 3 % (0-3); HEMATOCRIT 28.4 % (36.0-47.0); HEMOGLOBIN 9.5 g/dL (12.0-15.5); LYMPH # 1.5 x10^3/uL (1.0-4.8); LYMPH % 23 % (24-48); MEAN CORPUSCULAR HEMOGLOBIN 29 pg (25-35); MEAN CORPUSCULAR HGB CONC 33 g/dL (31-37); MEAN CORPUSCULAR VOLUME 87 fL (79-100); MONO % 9 % (0-9); NEUT % 66 % (31-73); PLATELET COUNT 262 x10^3/uL (140-400); RED BLOOD COUNT 3.27 x10^6/uL (3.50-5.40); RED CELL DISTRIBUTION WIDTH 13.9 % (11.5-14.5); WHITE BLOOD COUNT 6.6 x10^3/uL (4.0-11.0)
[2017-03-16 05:06] LABS: ALBUMIN 3.2 g/dL (3.4-5.0); ALBUMIN/GLOBULIN RATIO 0.8 (1.0-1.7); CALCIUM 8.6 mg/dL (8.5-10.1); CREATININE 0.6 mg/dL (0.6-1.0); GFR 94.3; POTASSIUM 4.2 mmol/L (3.5-5.1); TOTAL BILIRUBIN 0.4 mg/dL (0.2-1.0); TOTAL PROTEIN 7.1 g/dL (6.4-8.2)
[2017-03-16 07:00] VITALS: BP 176/54
--- NOTE | 2017-03-16 07:22 | RAD ---
Left lower extremity venous Doppler ultrasound exam HISTORY:left calf tenderness. COMPARISON: None FINDINGS: Multiple grayscale and color images and spectral analysis waveform images were acquired of the left lower extremity veins to evaluate for the presence of DVT. Normal compression, color-flow, and augmentation is demonstrated from the left common femoral to the popliteal veins. There is normal phasicity. There is normal color flow of the proximal profunda femoris and greater saphenous veins. There is normal color flow in segments of calf veins. Impression: 1. There is no evidence of deep venous thrombosis from the left common femoral to popliteal veins.
[2017-03-16] MEDS: IPRATRPIUM/ALBUTEROL 0.5/2.5MG 3 ML NEBU. NEB SCH ×4 (07:27→20:42)
[2017-03-16] MEDS: BUDESONIDE 0.5 MG/2 ML NEBU. NEB SCH ×2 (07:27→20:43)
[2017-03-16] MEDS: INSULIN ASPART 300 UNITS/3 ML INSULN.PEN SQ SCH ×2 (07:30→17:24)
[2017-03-16] MEDS: POLYETHYLENE GLYCOL 3350 17 GM PACKET. PO SCH (08:51)
[2017-03-16] MEDS: MULTIVITAMIN with MINERAL TABLET. PO SCH (08:52)
[2017-03-16] MEDS: CARVEDILOL 6.25 MG TABLET. PO SCH ×2 (08:52→17:18)
[2017-03-16] MEDS: CHOLECALCIFEROL (VITAMIN D3) 1,000 UNIT TABLET PO SCH (08:53)
[2017-03-16] MEDS: FUROSEMIDE 20 MG TABLET PO SCH (08:53)
[2017-03-16] MEDS: LACTOBACILLUS RHAMNOSUS GG 1 CAPSULE. PO SCH ×2 (08:53→20:38)
[2017-03-16] MEDS: ASPIRIN ENTERIC COATED 81 MG TABLET.DR. PO SCH (08:53)
[2017-03-16] MEDS: POTASSIUM CHLORIDE 20 MEQ TABLET.ER. PO SCH (08:53)
[2017-03-16] MEDS: FAMOTIDINE 20 MG TABLET. PO SCH (08:53)
[2017-03-16] MEDS: LOSARTAN POTASSIUM 50 MG TABLET. PO SCH ×2 (08:54→20:38)
[2017-03-16] MEDS: LEVOTHYROXINE 100 MCG TABLET PO SCH (08:55)
[2017-03-16] MEDS: cloNIDine HCL 0.2 MG TABLET PO SCH ×2 (08:55→20:37)
[2017-03-16] MEDS: DICLOFENAC SODIUM 1% TOPICAL GEL 100GM TUBE. TP SCH ×3 (08:56→20:39)
[2017-03-16] MEDS: LIDOCAINE (700MG/PATCH) PATCH. TD SCH (08:56)
--- NOTE | 2017-03-16 10:05 | PDOC ---
PROGRESS NOTES Subjective Subjective She admits some pain while up walking in her feet. Objective Objective Vital Signs Date Time Temp Pulse Resp B/P (MAP) Pulse Ox O2 Delivery O2 Flow Rate FiO2 03/16/17 08:55 70 176/54 03/16/17 07:28 95 Room Air 03/16/17 07:00 98.8 18 98.8 Intake and Output 03/16/17 07:00 Intake Total 500 ml Output Total 400 ml Balance 100 ml Intake Oral 500 ml Output Urine Total 400 ml # Voids 3 Physical Exam Physical Exam She is alert and comfortable but she needs supervision for mobility at roller walker level. Assessment Assessment Problems Medical Problems: (1) Fall at home Status: Acute Plan Plan of Custodial with home health follow up when medically stable. Comment Review of Relevant I have reviewed the following items daniela (where applicable) has been applied. Labs Laboratory Tests Test 03/14/17 14:17 03/14/17 15:13 03/15/17 08:09 03/15/17 11:05 White Blood Count 6.7 x10^3/uL (4.0-11.0) Red Blood Count 3.83 x10^6/uL (3.50-5.40) Hemoglobin 11.0 g/dL (12.0-15.5) Hematocrit 33.3 % (36.0-47.0) Mean Corpuscular Volume 87 fL (79-100) Mean Corpuscular Hemoglobin 29 pg (25-35) Mean Corpuscular Hemoglobin Concent 33 g/dL (31-37) Red Cell Distribution Width 13.9 % (11.5-14.5) Platelet Count 293 x10^3/uL (140-400) Neutrophils (%) (Auto) 73 % (31-73) Lymphocytes (%) (Auto) 18 % (24-48) Monocytes (%) (Auto) 7 % (0-9) Eosinophils (%) (Auto) 2 % (0-3) Basophils (%) (Auto) 1 % (0-3) Neutrophils # (Auto) 4.8 x10^3uL (1.8-7.7) Lymphocytes # (Auto) 1.2 x10^3/uL (1.0-4.8) Monocytes # (Auto) 0.4 x10^3/uL (0.0-1.1) Eosinophils # (Auto) 0.1 x10^3/uL (0.0-0.7) Basophils # (Auto) 0.0 x10^3/uL (0.0-0.2) Sodium Level 135 mmol/L (136-145) Potassium Level 4.0 mmol/L (3.5-5.1) Chloride Level 100 mmol/L (98-107) Carbon Dioxide Level 26 mmol/L (21-32) Anion Gap 9 (6-14) Blood Urea Nitrogen 15 mg/dL (7-20) Creatinine 0.8 mg/dL (0.6-1.0) Estimated GFR (Cockcroft-Gault) 67.7 BUN/Creatinine Ratio 19 (6-20) Glucose Level 204 mg/dL (70-99) Calcium Level 9.3 mg/dL (8.5-10.1) Total Bilirubin 0.3 mg/dL (0.2-1.0) Aspartate Amino Transf (AST/SGOT) 29 U/L (15-37) Alanine Aminotransferase (ALT/SGPT) 24 U/L (14-59) Alkaline Phosphatase 90 U/L (46-116) Troponin I Quantitative < 0.017 ng/mL (0.000-0.055) Total Protein 8.8 g/dL (6.4-8.2) Albumin 3.4 g/dL (3.4-5.0) Albumin/Globulin Ratio 0.6 (1.0-1.7) Urine Collection Type Void Urine Color Straw Urine Clarity Cloudy Urine pH 6.5 Urine Specific [place] 1.010 Urine Protein Negative mg/dL (NEG-TRACE) Urine Glucose (UA) Negative mg/dL (NEG) Urine Ketones (Stick) Negative mg/dL (NEG) Urine Blood Trace (NEG) Urine Nitrite Positive (NEG) Urine Bilirubin Negative (NEG) Urine Urobilinogen Dipstick 1.0 mg/dL (0.2 mg/dL) Urine Leukocyte Esterase Large (NEG) Urine RBC 1-2 /HPF (0-2) Urine WBC >40 /HPF (0-4) Urine Squamous Epithelial Cells Few /LPF Urine Bacteria Many /HPF (0-FEW) Glucose (Fingerstick) 217 mg/dL (70-99) 168 mg/dL (70-99) Test 03/15/17 16:15 03/15/17 21:42 03/15/17 22:48 03/16/17 03:35 Glucose (Fingerstick) 114 mg/dL (70-99) 149 mg/dL (70-99) 158 mg/dL (70-99) White Blood Count 6.6 x10^3/uL (4.0-11.0) Red Blood Count 3.27 x10^6/uL (3.50-5.40) Hemoglobin 9.5 g/dL (12.0-15.5) Hematocrit 28.4 % (36.0-47.0) Mean Corpuscular Volume 87 fL (79-100) Mean Corpuscular Hemoglobin 29 pg (25-35) Mean Corpuscular Hemoglobin Concent 33 g/dL (31-37) Red Cell Distribution Width 13.9 % (11.5-14.5) Platelet Count 262 x10^3/uL (140-400) Neutrophils (%) (Auto) 66 % (31-73) Lymphocytes (%) (Auto) 23 % (24-48) Monocytes (%) (Auto) 9 % (0-9) Eosinophils (%) (Auto) 3 % (0-3) Basophils (%) (Auto) 1 % (0-3) Neutrophils # (Auto) 4.3 x10^3uL (1.8-7.7) Lymphocytes # (Auto) 1.5 x10^3/uL (1.0-4.8) Monocytes # (Auto) 0.6 x10^3/uL (0.0-1.1) Eosinophils # (Auto) 0.2 x10^3/uL (0.0-0.7) Basophils # (Auto) 0.0 x10^3/uL (0.0-0.2) Sodium Level 138 mmol/L (136-145) Potassium Level 4.2 mmol/L (3.5-5.1) Chloride Level 104 mmol/L (98-107) Carbon Dioxide Level 29 mmol/L (21-32) Anion Gap 5 (6-14) Blood Urea Nitrogen 12 mg/dL (7-20) Creatinine 0.6 mg/dL (0.6-1.0) Estimated GFR (Cockcroft-Gault) 94.3 BUN/Creatinine Ratio 20 (6-20) Glucose Level 130 mg/dL (70-99) Calcium Level 8.6 mg/dL (8.5-10.1) Magnesium Level 2.1 mg/dL (1.8-2.4) Total Bilirubin 0.4 mg/dL (0.2-1.0) Aspartate Amino Transf (AST/SGOT) 18 U/L (15-37) Alanine Aminotransferase (ALT/SGPT) 19 U/L (14-59) Alkaline Phosphatase 76 U/L (46-116) Total Protein 7.1 g/dL (6.4-8.2) Albumin 3.2 g/dL (3.4-5.0) Albumin/Globulin Ratio 0.8 (1.0-1.7) Test 03/16/17 07:30 Glucose (Fingerstick) 131 mg/dL (70-99) Laboratory Tests Test 03/15/17 11:05 03/15/17 16:15 03/15/17 21:42 03/15/17 22:48 Glucose (Fingerstick) 168 mg/dL (70-99) 114 mg/dL (70-99) 149 mg/dL (70-99) 158 mg/dL (70-99) Test 03/16/17 03:35 03/16/17 07:30 White Blood Count 6.6 x10^3/uL (4.0-11.0) Red Blood Count 3.27 x10^6/uL (3.50-5.40) Hemoglobin 9.5 g/dL (12.0-15.5) Hematocrit 28.4 % (36.0-47.0) Mean Corpuscular Volume 87 fL (79-100) Mean Corpuscular Hemoglobin 29 pg (25-35) Mean Corpuscular Hemoglobin Concent 33 g/dL (31-37) Red Cell Distribution Width 13.9 % (11.5-14.5) Platelet Count 262 x10^3/uL (140-400) Neutrophils (%) (Auto) 66 % (31-73) Lymphocytes (%) (Auto) 23 % (24-48) Monocytes (%) (Auto) 9 % (0-9) Eosinophils (%) (Auto) 3 % (0-3) Basophils (%) (Auto) 1 % (0-3) Neutrophils # (Auto) 4.3 x10^3uL (1.8-7.7) Lymphocytes # (Auto) 1.5 x10^3/uL (1.0-4.8) Monocytes # (Auto) 0.6 x10^3/uL (0.0-1.1) Eosinophils # (Auto) 0.2 x10^3/uL (0.0-0.7) Basophils # (Auto) 0.0 x10^3/uL (0.0-0.2) Sodium Level 138 mmol/L (136-145) Potassium Level 4.2 mmol/L (3.5-5.1) Chloride Level 104 mmol/L (98-107) Carbon Dioxide Level 29 mmol/L (21-32) Anion Gap 5 (6-14) Blood Urea Nitrogen 12 mg/dL (7-20) Creatinine 0.6 mg/dL (0.6-1.0) Estimated GFR (Cockcroft-Gault) 94.3 BUN/Creatinine Ratio 20 (6-20) Glucose Level 130 mg/dL (70-99) Calcium Level 8.6 mg/dL (8.5-10.1) Magnesium Level 2.1 mg/dL (1.8-2.4) Total Bilirubin 0.4 mg/dL (0.2-1.0) Aspartate Amino Transf (AST/SGOT) 18 U/L (15-37) Alanine Aminotransferase (ALT/SGPT) 19 U/L (14-59) Alkaline Phosphatase 76 U/L (46-116) Total Protein 7.1 g/dL (6.4-8.2) Albumin 3.2 g/dL (3.4-5.0) Albumin/Globulin Ratio 0.8 (1.0-1.7) Glucose (Fingerstick) 131 mg/dL (70-99) Microbiology 03/14/17 Urine Culture - Preliminary, Resulted 03/14/17 Urine Culture Result 1 (LALITHA) - Preliminary, Resulted Medications Current Medications Ondansetron HCl (Zofran) 4 mg 1X ONCE IV Last administered on 03/14/17 14:54 ; Start 03/14/17 at 15:00; Stop 03/14/17 at 15:01; Status DC Acetaminophen (Tylenol) 1,000 mg 1X ONCE PO Last administered on 03/14/17 17 :54; Start 03/14/17 at 17:45; Stop 03/14/17 at 17:46; Status DC Carvedilol (Coreg) 6.25 mg 1X ONCE PO Last administered on 03/14/17 17:47; Start 03/14/17 at 17:45; Stop 03/14/17 at 17:46; Status DC Clonidine HCl (Catapres) 0.2 mg 1X ONCE PO Last administered on 03/14/17 17: 46; Start 03/14/17 at 17:45; Stop 03/14/17 at 17:46; Status DC Lidocaine (Lidoderm) 1 patch DAILY TD Last administered on 03/16/17 08:56; Start 03/14/17 at 17:45 Fentanyl Citrate (Fentanyl 2ml Vial) 25 mcg PRN Q15MIN PRN IV PAIN GREATER THAN 3/10; Start 03/14/17 at 17:15; Stop 03/15/17 at 11:52; Status DC Ceftriaxone Sodium 50 ml @ 100 mls/hr 1X ONCE IV Last administered on 17:48; Start 03/14/17 at 17:45; Stop 03/14/17 at 18:14; Status DC Ceftriaxone Sodium 1 gm/ Dextrose 50 ml @ 100 mls/hr Q24H IV ; Start 03/14/17 at 17:15; Status UNV Ceftriaxone Sodium (Rocephin) 1 gm Q24H IVP Last administered on 03/15/17 17: 09; Start 03/15/17 at 17:00 Carvedilol (Coreg) 6.25 mg BIDWMEALS PO Last administered on 03/16/17 08:52; Start 03/15/17 at 08:00 Clonidine HCl (Catapres) 0.2 mg BID66 PO ; Start 03/15/17 at 06:00; Stop 03/15 at 07:18; Status DC Losartan Potassium (Cozaar) 50 mg BID PO Last administered on 03/16/17 08:54 ; Start 03/14/17 at 21:00 Clonidine HCl (Catapres) 0.2 mg BID PO Last administered on 03/16/17 08:55; Start 03/15/17 at 09:00 Acetaminophen (Tylenol) 650 mg PRN Q8HRS PRN PO PAIN Last administered on 03/15 19:19; Start 03/15/17 at 09:00 Aspirin (Ecotrin) 81 mg DAILY PO Last administered on 03/16/17 08:53; Start 03/15/17 at 10:00 Cetirizine HCl (ZyrTEC) 10 mg HS PO Last administered on 03/15/17 20:37; Start 03/15/17 at 21:00 Vitamin D (Vitamin D3) 1,000 unit DAILY PO Last administered on 03/16/17 08: 53; Start 03/15/17 at 10:00 Clonidine HCl (Catapres) 0.2 mg BID PO ; Start 03/15/17 at 10:00; Status UNV Diclofenac Sodium (Voltaren) 1 griselda TID TP Last administered on 03/16/17 08:56 ; Start 03/15/17 at 10:00 Furosemide (Lasix) 20 mg DAILY PO Last administered on 03/16/17 08:53; Start 03/15/17 at 10:00 Albuterol/ Ipratropium (Duoneb) 3 ml RTQID NEB Last administered on 03/16/17 07:27; Start 03/15/17 at 09:30 Levothyroxine Sodium (Synthroid) 100 mcg DAILY07 PO Last administered on 08:55; Start 03/15/17 at 10:00 Montelukast Sodium (Singulair) 10 mg HS PO Last administered on 03/15/17 20: 37; Start 03/15/17 at 21:00 Multivitamins (Thera M Plus) 1 tab DAILY PO Last administered on 03/16/17 08: 52; Start 03/15/17 at 10:00 Polyethylene Glycol (miraLAX PACKET) 17 gm DAILY PO Last administered on 08:51; Start 03/15/17 at 10:00 Non-Formulary Medication 2 puff BID IH ; Start 03/15/17 at 09:00; Status UNV Potassium Chloride (Klor-Con) 20 meq DAILYWBKFT PO Last administered on 08:53; Start 03/15/17 at 10:00 Famotidine (Pepcid) 20 mg DAILY PO Last administered on 03/16/17 08:53; Start 03/15/17 at 10:00 Insulin Aspart (NovoLOG) BIDBFRMEAL SQ Last administered on 03/15/17 09:52; Start 03/15/17 at 09:30 Budesonide (Pulmicort) 0.5 mg RTBID NEB Last administered on 03/16/17 07:27; Start 03/15/17 at 09:30 Ceftriaxone Sodium 1 gm/ Dextrose 50 ml @ 100 mls/hr Q24H IV ; Start 03/15/17 at 11:30; Status UNV Lactobacillus Rhamnosus (Culturelle) 1 cap BID PO Last administered on 08:53; Start 03/15/17 at 21:00 Active Scripts Active Aspir 81 (Aspirin) 81 Mg Tablet.dr 1 Tab PO DAILY Voltaren (Diclofenac Sodium) 100 Gm Gel..gram. 4 Gm TP TID Thera-M Tablet (Multivits,Ca,Minerals/Iron/Fa) 1 Each Tablet 1 Tab PO DAILY Carvedilol 6.25 Mg Tablet 6.25 Mg PO BIDWMEALS Reported Furosemide 20 Mg Tablet 20 Mg PO DAILY Duoneb 0.5-3(2.5) Mg/3 Ml (Albuterol/Ipratropium) 3 Ml Ampul.neb 3 Ml NEB QID Dulera 200 Mcg/5 Mcg Inhaler (Mometasone/Formoterol) 13 Gm Hfa.aer.ad 2 Puff IH BID Clonidine Hcl 0.2 Mg Tablet 1 Tab PO BID Zyrtec (Cetirizine Hcl) 10 Mg Tablet 1 Tab PO HS Vitamin D3 (Cholecalciferol (Vitamin D3)) 1,000 Unit Tablet 1 Tab PO DAILY Ranitidine Hcl 150 Mg Tablet 1 Tab PO BID Miralax (Polyethylene Glycol 3350) 17 Gm Powd.pack 1 Packet PO DAILY Acetaminophen 500 Mg Tablet 650 Mg PO Q8HRS PRN Potassium Chloride 10 Meq Capsule.er 20 Meq PO DAILY Singulair Tablet (Montelukast Sodium) 10 Mg Tablet 10 Mg PO HS Losartan Potassium 50 Mg Tablet 50 Mg PO BID Synthroid (Levothyroxine Sodium) 50 Mcg Tablet 100 Mcg PO DAILY Vitals/I & O Vital Sign - Last 24 Hours 03/15/17 03/15/17 03/15/17 03/15/17 11:00 13:55 15:00 15:42 Temp 97.7 97.9 97.7 97.9 Pulse 71 61 Resp 18 16 B/P (MAP) 121/54 (76) 141/43 (75) Pulse Ox 95 96 94 95 O2 Delivery Room Air Room Air Room Air Room Air 03/15/17 03/15/17 03/15/17 03/15/17 17:08 19:00 20:00 20:14 Temp 97.7 97.7 Pulse 61 73 Resp 16 B/P (MAP) 141/43 169/71 (103) Pulse Ox 95 100 O2 Delivery Room Air Room Air Room Air 03/15/17 03/15/17 03/15/17 03/15/17 20:36 20:37 20:53 23:00 Temp 98.1 98.1 Pulse 73 73 67 Resp 16 B/P (MAP) 169/73 169/71 150/74 (99) Pulse Ox 100 92 O2 Delivery Room Air Room Air 03/16/17 03/16/17 03/16/17 03/16/17 03:00 07:00 07:27 07:28 Temp 97.9 98.8 97.9 98.8 Pulse 67 70 Resp 16 18 B/P (MAP) 169/72 (104) 176/54 (94) Pulse Ox 93 94 95 95 O2 Delivery Room Air Room Air Room Air Room Air 03/16/17 03/16/17 03/16/17 08:52 08:54 08:55 Pulse 70 70 70 B/P (MAP) 176/54 176/54 176/54 Intake and Output 03/15/17 03/15/17 03/16/17 15:00 23:00 07:00 Intake Total 200 ml 300 ml Output Total 400 ml Balance 200 ml -100 ml BETH JOHNSON MD Mar 16, 2017 10:05
[2017-03-16 11:00] VITALS: BP 112/49
--- NOTE | 2017-03-16 11:50 | PDOC ---
PROGRESS NOTES Subjective Subjective rib pain Objective Objective Vital Signs Date Time Temp Pulse Resp B/P (MAP) Pulse Ox O2 Delivery O2 Flow Rate FiO2 03/16/17 11:00 97.7 71 18 112/49 (70) 95 Room Air 97.7 Intake and Output 03/16/17 07:00 Intake Total 500 ml Output Total 400 ml Balance 100 ml Intake Oral 500 ml Output Urine Total 400 ml # Voids 3 Physical Exam Abdomen: Normal bowel sounds, Soft Heart: Regular rate, Normal S1, Normal S2 Extremities: No clubbing General: Alert, Oriented X3 HEENT: Other (bruised fore head) Lungs: Clear to auscultation MUSCULOSKELETAL: No swelling Neuro: Normal speech Psych/Mental Status: Mental status NL Skin: No breakdown Diagnosis Problem List Problems Medical Problems: (1) Fall at home Status: Acute Assessment Assessment Problems Medical Problems: (1) Fall at home Status: Acute IMPRESSION:Mechanical fall at home, bruised rt fore head 1. Fall with multiple fractures including right 9th and 10th rib fractures. 2. Bilateral feet fractures. 3. Acute urinary tract infection. 4. Diabetes mellitus type 2 with neuropathy. 5. Hyperglycemia. 6. Hypertension, not controlled. 7. Asthma. 8. Anemia of chronic disease. 9. Chronic kidney disease 2. 10. Hyperlipidemia. 11. Anxiety, improving. 12. History of non-ST elevation myocardial infraction 04/2015 with negative coronary artery disease per cardiac catheterization. 13. Ischemic cardiomyopathy with a history of congestive heart failure, chronic, ejection fraction 25%, Takotsubo syndrome. 14. Diabetes mellitus type 2 with neuropathy, not controlled. PLAN: Labs ok urine c/s 100,0000gram neg rods. pt/ot needs SNU. Admit to the hospital. Consult Dr. Isaac for reevaluation and management. I started her on IV Rocephin. Follow up urine culture. Condition and treatment discussed with the patient and the daughter. Start physical therapy and monitor her balance. For details, please refer to the orders. Problems: Plan Plan of Care Problems Medical Problems: (1) Fall at home Status: Acute Comment Review of Relevant I have reviewed the following items daniela (where applicable) has been applied. Labs Laboratory Tests Test 03/15/17 16:15 03/15/17 21:42 03/15/17 22:48 03/16/17 03:35 Glucose (Fingerstick) 114 mg/dL (70-99) 149 mg/dL (70-99) 158 mg/dL (70-99) White Blood Count 6.6 x10^3/uL (4.0-11.0) Red Blood Count 3.27 x10^6/uL (3.50-5.40) Hemoglobin 9.5 g/dL (12.0-15.5) Hematocrit 28.4 % (36.0-47.0) Mean Corpuscular Volume 87 fL (79-100) Mean Corpuscular Hemoglobin 29 pg (25-35) Mean Corpuscular Hemoglobin Concent 33 g/dL (31-37) Red Cell Distribution Width 13.9 % (11.5-14.5) Platelet Count 262 x10^3/uL (140-400) Neutrophils (%) (Auto) 66 % (31-73) Lymphocytes (%) (Auto) 23 % (24-48) Monocytes (%) (Auto) 9 % (0-9) Eosinophils (%) (Auto) 3 % (0-3) Basophils (%) (Auto) 1 % (0-3) Neutrophils # (Auto) 4.3 x10^3uL (1.8-7.7) Lymphocytes # (Auto) 1.5 x10^3/uL (1.0-4.8) Monocytes # (Auto) 0.6 x10^3/uL (0.0-1.1) Eosinophils # (Auto) 0.2 x10^3/uL (0.0-0.7) Basophils # (Auto) 0.0 x10^3/uL (0.0-0.2) Sodium Level 138 mmol/L (136-145) Potassium Level 4.2 mmol/L (3.5-5.1) Chloride Level 104 mmol/L (98-107) Carbon Dioxide Level 29 mmol/L (21-32) Anion Gap 5 (6-14) Blood Urea Nitrogen 12 mg/dL (7-20) Creatinine 0.6 mg/dL (0.6-1.0) Estimated GFR (Cockcroft-Gault) 94.3 BUN/Creatinine Ratio 20 (6-20) Glucose Level 130 mg/dL (70-99) Calcium Level 8.6 mg/dL (8.5-10.1) Magnesium Level 2.1 mg/dL (1.8-2.4) Total Bilirubin 0.4 mg/dL (0.2-1.0) Aspartate Amino Transf (AST/SGOT) 18 U/L (15-37) Alanine Aminotransferase (ALT/SGPT) 19 U/L (14-59) Alkaline Phosphatase 76 U/L (46-116) Total Protein 7.1 g/dL (6.4-8.2) Albumin 3.2 g/dL (3.4-5.0) Albumin/Globulin Ratio 0.8 (1.0-1.7) Test 03/16/17 07:30 03/16/17 10:46 Glucose (Fingerstick) 131 mg/dL (70-99) 204 mg/dL (70-99) Microbiology 03/14/17 Urine Culture - Preliminary, Resulted 03/14/17 Urine Culture Result 1 (LALITHA) - Preliminary, Resulted Medications Current Medications Ceftriaxone Sodium (Rocephin) 1 gm Q24H IVP Last administered on 03/15/17 17: 09; Start 03/15/17 at 17:00 Cetirizine HCl (ZyrTEC) 10 mg HS PO Last administered on 03/15/17 20:37; Start 03/15/17 at 21:00 Lactobacillus Rhamnosus (Culturelle) 1 cap BID PO Last administered on 08:53; Start 03/15/17 at 21:00 Montelukast Sodium (Singulair) 10 mg HS PO Last administered on 03/15/17 20: 37; Start 03/15/17 at 21:00 Vitals/I & O Vital Sign - Last 24 Hours 03/15/17 03/15/17 03/15/17 03/15/17 13:55 15:00 15:42 17:08 Temp 97.9 97.9 Pulse 61 61 Resp 16 B/P (MAP) 141/43 (75) 141/43 Pulse Ox 96 94 95 O2 Delivery Room Air Room Air Room Air 03/15/17 03/15/17 03/15/17 03/15/17 19:00 20:00 20:14 20:36 Temp 97.7 97.7 Pulse 73 73 Resp 16 B/P (MAP) 169/71 (103) 169/73 Pulse Ox 95 100 O2 Delivery Room Air Room Air Room Air 03/15/17 03/15/17 03/15/17 03/16/17 20:37 20:53 23:00 03:00 Temp 98.1 97.9 98.1 97.9 Pulse 73 67 67 Resp 16 16 B/P (MAP) 169/71 150/74 (99) 169/72 (104) Pulse Ox 100 92 93 O2 Delivery Room Air Room Air Room Air 03/16/17 03/16/17 03/16/17 03/16/17 07:00 07:27 07:28 08:00 Temp 98.8 98.8 Pulse 70 Resp 18 B/P (MAP) 176/54 (94) Pulse Ox 94 95 95 O2 Delivery Room Air Room Air Room Air Room Air 03/16/17 03/16/17 03/16/17 03/16/17 08:52 08:54 08:55 11:00 Temp 97.7 97.7 Pulse 70 70 70 71 Resp 18 B/P (MAP) 176/54 176/54 176/54 112/49 (70) Pulse Ox 95 O2 Delivery Room Air Intake and Output 03/15/17 03/15/17 03/16/17 15:00 23:00 07:00 Intake Total 200 ml 300 ml Output Total 400 ml Balance 200 ml -100 ml BERNARD CHENG MD Mar 16, 2017 11:50
[2017-03-16 15:00] VITALS: BP 135/52
[2017-03-16] MEDS ORDERED: BENZOCAINE/MENTHOL LOZENGE. PO PRN (17:00)
[2017-03-16] MEDS: cefTRIAXone IV Push 1 GM VIAL. IVP SCH (17:17)
[2017-03-16 19:00] VITALS: BP 181/71
[2017-03-16] MEDS ORDERED: guaiFENesin DM 200MG/20MG 10 ML SYRUP PO PRN (20:15)
[2017-03-16] MEDS: CETIRIZINE HCL 10 MG TABLET. PO SCH (20:36)
[2017-03-16] MEDS: ACETAMINOPHEN 500 MG TABLET PO PRN (20:36)
[2017-03-16] MEDS: MONTELUKAST SODIUM 10 MG TABLET. PO SCH (20:37)
[2017-03-16 23:00] VITALS: BP 125/67
[2017-03-17 03:00] VITALS: BP 130/71
[2017-03-17 07:00] VITALS: BP 137/54
[2017-03-17] MEDS: LEVOTHYROXINE 100 MCG TABLET PO SCH (07:24)
[2017-03-17] MEDS: INSULIN ASPART 300 UNITS/3 ML INSULN.PEN SQ SCH ×3 (07:30→16:30)
[2017-03-17] MEDS: BUDESONIDE 0.5 MG/2 ML NEBU. NEB SCH ×2 (07:42→19:33)
[2017-03-17] MEDS: IPRATRPIUM/ALBUTEROL 0.5/2.5MG 3 ML NEBU. NEB SCH ×4 (07:42→19:33)
[2017-03-17] MEDS: POLYETHYLENE GLYCOL 3350 17 GM PACKET. PO SCH (08:21)
[2017-03-17] MEDS: CARVEDILOL 6.25 MG TABLET. PO SCH ×2 (08:22→18:32)
[2017-03-17] MEDS: FAMOTIDINE 20 MG TABLET. PO SCH (08:22)
[2017-03-17] MEDS: FUROSEMIDE 20 MG TABLET PO SCH (08:22)
[2017-03-17] MEDS: LOSARTAN POTASSIUM 50 MG TABLET. PO SCH ×2 (08:23→20:51)
[2017-03-17] MEDS: ASPIRIN ENTERIC COATED 81 MG TABLET.DR. PO SCH (08:23)
[2017-03-17] MEDS: LACTOBACILLUS RHAMNOSUS GG 1 CAPSULE. PO SCH ×2 (08:23→20:51)
[2017-03-17] MEDS: CHOLECALCIFEROL (VITAMIN D3) 1,000 UNIT TABLET PO SCH (08:23)
[2017-03-17] MEDS: MULTIVITAMIN with MINERAL TABLET. PO SCH (08:23)
[2017-03-17] MEDS: POTASSIUM CHLORIDE 20 MEQ TABLET.ER. PO SCH (08:24)
[2017-03-17] MEDS: cloNIDine HCL 0.2 MG TABLET PO SCH ×2 (08:24→20:52)
[2017-03-17] MEDS: LIDOCAINE (700MG/PATCH) PATCH. TD SCH (08:25)
[2017-03-17] MEDS: DICLOFENAC SODIUM 1% TOPICAL GEL 100GM TUBE. TP SCH ×3 (09:00→20:52)
[2017-03-17 11:00] VITALS: BP 111/48
--- NOTE | 2017-03-17 11:13 | PDOC ---
PROGRESS NOTES Subjective Subjective feels better today Objective Objective Vital Signs Date Time Temp Pulse Resp B/P (MAP) Pulse Ox O2 Delivery O2 Flow Rate FiO2 03/17/17 08:24 60 137/54 03/17/17 08:00 Room Air 03/17/17 07:44 100 03/17/17 07:00 98.0 18 98.0 Intake and Output 03/17/17 07:00 Intake Total 2700 ml Output Total 0 ml Balance 2700 ml Intake Oral 2700 ml Output Urine Total 0 ml # Voids 7 Physical Exam Abdomen: Normal bowel sounds, Soft Heart: Regular rate, Normal S1, Normal S2 Extremities: No clubbing General: Alert, Oriented X3 HEENT: Other (bruised fore head) Lungs: Clear to auscultation MUSCULOSKELETAL: No swelling Neuro: Normal speech Psych/Mental Status: Mental status NL Skin: No breakdown COMMENT bruised fore head Diagnosis Problem List Problems Medical Problems: (1) Fall at home Status: Acute Assessment Assessment Problems Medical Problems: (1) Fall at home Status: Acute IMPRESSION:Mechanical fall at home, bruised rt fore head 1. Fall with multiple fractures including right 9th and 10th rib fractures. 2. Bilateral feet fractures. 3. Acute urinary tract infection. 4. Diabetes mellitus type 2 with neuropathy. 5. Hyperglycemia. 6. Hypertension, not controlled. 7. Asthma. 8. Anemia of chronic disease. 9. Chronic kidney disease 2. 10. Hyperlipidemia. 11. Anxiety, improving. 12. History of non-ST elevation myocardial infraction 04/2015 with negative coronary artery disease per cardiac catheterization. 13. Ischemic cardiomyopathy with a history of congestive heart failure, chronic, ejection fraction 25%, Takotsubo syndrome. 14. Diabetes mellitus type 2 with neuropathy, not controlled. PLAN: spoke with daughter, want [facility] to [facility] Labs ok urine c/s 100,0000gram neg rods.iv rocephin pt/ot Admit to the hospital. Consult Dr. Isaac for reevaluation and management. I started her on IV Rocephin. Follow up urine culture. Condition and treatment discussed with the patient and the daughter. Start physical therapy and monitor her balance. For details, please refer to the orders. Problems: Plan Plan of Care Problems Medical Problems: (1) Fall at home Status: Acute Comment Review of Relevant I have reviewed the following items daniela (where applicable) has been applied. Labs Laboratory Tests Test 03/16/17 17:01 03/16/17 21:13 03/17/17 07:26 Glucose (Fingerstick) 155 mg/dL (70-99) 169 mg/dL (70-99) 134 mg/dL (70-99) Microbiology 03/14/17 Urine Culture - Preliminary, Resulted 03/14/17 Urine Culture Result 1 (LALITHA) - Preliminary, Resulted Medications Current Medications Guaifenesin (Robitussin Dm) 5 ml PRN Q6HRS PRN PO COUGH Last administered on t 20:38; Start 03/16/17 at 20:15 Throat Lozenges (Cepacol Sore Throat Lozenge) 1 monae PRN Q2HRS PRN PO SORE THROAT; Start 03/16/17 at 17:00 Vitals/I & O Vital Sign - Last 24 Hours 03/16/17 03/16/17 03/16/17 03/16/17 12:20 15:00 17:18 19:00 Temp 98.4 98.6 98.4 98.6 Pulse 69 69 70 Resp 18 18 B/P (MAP) 135/52 (79) 135/52 181/71 (107) Pulse Ox 99 94 97 O2 Delivery Room Air Room Air Room Air 03/16/17 03/16/17 03/16/17 03/16/17 20:00 20:37 20:38 20:44 Pulse 70 70 B/P (MAP) 181/71 181/71 Pulse Ox 99 O2 Delivery Room Air Room Air 03/16/17 03/16/17 03/17/17 03/17/17 20:45 23:00 03:00 07:00 Temp 98.5 99.0 98.0 98.5 99.0 98.0 Pulse 67 72 60 Resp 18 18 18 B/P (MAP) 125/67 (86) 130/71 (90) 137/54 (81) Pulse Ox 99 95 96 95 O2 Delivery Room Air Room Air Room Air Room Air 03/17/17 03/17/17 03/17/17 03/17/17 07:44 07:44 08:00 08:22 Pulse 60 B/P (MAP) 137/54 Pulse Ox 100 100 O2 Delivery Room Air Room Air Room Air 03/17/17 03/17/17 08:23 08:24 Pulse 60 60 B/P (MAP) 137/54 137/54 Intake and Output 03/16/17 03/16/17 03/17/17 15:00 23:00 07:00 Intake Total 2700 ml Output Total 0 ml Balance 2700 ml BERNARD CHENG MD Mar 17, 2017 11:13
[2017-03-17 15:00] VITALS: BP 135/60
[2017-03-17] MEDS: ACETAMINOPHEN 500 MG TABLET PO PRN (18:35)
[2017-03-17 19:00] VITALS: BP 157/68
[2017-03-17] MEDS: MONTELUKAST SODIUM 10 MG TABLET. PO SCH (20:51)
[2017-03-17] MEDS: CETIRIZINE HCL 10 MG TABLET. PO SCH (20:51)
[2017-03-17] MEDS: CEFPODOXIME PROXETIL 100 MG TABLET. PO SCH (21:00)
[2017-03-17 23:00] VITALS: BP 134/71
[2017-03-18 03:00] VITALS: BP 131/71
[2017-03-18] MEDS: LEVOTHYROXINE 100 MCG TABLET PO SCH (06:00)
[2017-03-18 07:00] VITALS: BP 180/71
[2017-03-18] MEDS: IPRATRPIUM/ALBUTEROL 0.5/2.5MG 3 ML NEBU. NEB SCH ×4 (07:20→19:22)
[2017-03-18] MEDS: BUDESONIDE 0.5 MG/2 ML NEBU. NEB SCH ×2 (07:20→19:22)
[2017-03-18] MEDS: INSULIN ASPART 300 UNITS/3 ML INSULN.PEN SQ SCH ×2 (07:30→16:56)
--- NOTE | 2017-03-18 08:15 | PDOC ---
JATIN KEARNS PIN CLEANER 03/18/17 0814: IM PROGRESS NOTES- Subjective Subjective feeling better Objective Objective alert no distress Vitals Vital Signs Date Time Temp Pulse Resp B/P (MAP) Pulse Ox O2 Delivery O2 Flow Rate FiO2 03/18/17 07:21 96 Room Air 03/18/17 03:00 98.6 70 18 131/71 (91) 98.6 Input & Output Intake and Output 03/18/17 07:00 Intake Total 756 ml Balance 756 ml Intake Oral 756 ml # Voids 8 Physical Exam Physical Exam General appearance - alert,well appearing, and in no distress Mental Status - alert, oriented to person, place, and time, affect appropriate to mood Head - normal bruising forehead, bridge nose, R orbital >L Chest - clear to auscultation, no wheezes, rales or rhonchi, DB w/o splinting Heart - S1 and S2 normal Abdomen - soft, nontender, nondistended, obese, BS + Neurological - no acute focal neurological deficit. Musculoskeletal - no muscular tenderness noted Extremities - no pedal edema Skin - warm and dry Labs Laboratory Tests Test 03/16/17 10:46 03/16/17 17:01 03/16/17 21:13 03/17/17 07:26 Glucose (Fingerstick) 204 mg/dL (70-99) 155 mg/dL (70-99) 169 mg/dL (70-99) 134 mg/dL (70-99) Test 03/17/17 11:31 03/17/17 16:57 Glucose (Fingerstick) 228 mg/dL (70-99) 111 mg/dL (70-99) Laboratory Tests Test 03/17/17 11:31 03/17/17 16:57 Glucose (Fingerstick) 228 mg/dL (70-99) 111 mg/dL (70-99) Meds Current Medications Cefpodoxime Proxetil (Vantin) 100 mg BID PO Last administered on 03/17/17t 21: 00; Start 03/17/17 at 21:00 Assessment Assessment Problems Medical Problems: (1) Fall at home Status: Acute Final Diagnosis 1. Traumatic mechanical fall with bruising forehead, R lateral slightly displaced 9-10th rib fractures, fractures L big toe and toe #2 and R 2cd -3rd toe all non displaced 2. Acute UTI w/o sepsis E coli POA 3. Diabetes mellitus type 2 with neuropathy, prison insulin, not controlled 4. Hyperglycemia secondary to DM 5. Hypertension, uncontrolled.-not HTN urgency 6. Asthma. 7. Anemia of chronic disease. 8. Chronic kidney disease 2. 9. Hyperlipidemia. 10. Anxiety. 11. History of non-ST elevation myocardial infraction 04/2015 with negative coronary artery disease per cardiac catheterization. 12. Ischemic cardiomyopathy with a history of congestive heart failure, chronic , ejection fraction 25%, Takotsubo syndrome. 13. chronic moderate PCL malnutrition 14. 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 spinal stenosis C 6-C7 incidental finding/CT head/cervical spine- incidental finding PLAN: fall with multiple fractures Rehab medicine PT OT consult Pain medication UTI POA no sepsis Rocephin IV changed to vantin 100mg bid - continue for 5 days after discharge DM II not controlled BS 111-228 Continue current plan of care - h/o acute hypoglycemia as she does not take medications as directed at home Anemia chronic disease Admit Hgb 11.0 03/16 9.5 Hold ASA- bruising forehead no overt bleeding DC orders for SNU initiated. See orders for further plan of care 03/17/17 PLAN: spoke with daughter, [facility] Labs ok urine c/s 100,0000gram neg rods.iv rocephin pt/ot 03/14/17 Admit to the hospital. Consult Dr. Isaac for reevaluation and management. I started her on IV Rocephin. Follow up urine culture. Condition and treatment discussed with the patient and the daughter. Start physical therapy and monitor her balance. For details, please refer to the orders. For further plan of care, please refer to the orders. Plan Plan For more details regarding further plans, please refer to the orders. LUPE MEDINA MD 03/18/17 0924: IM PROGRESS NOTES- Assessment Assessment D/w patient and family. Ok to discharge to SNF. The patient was seen and examined by me. Chart reviewed and plan of care formulated. Discussed with, reviewed and agree with DIRECTOR OF REVENUE's notes, plan of care and orders with modifications as necessary. Discharge Management - 35 minutes. JATIN KEARNS APRN Mar 18, 2017 08:14 LUPE MEDINA MD Mar 18, 2017 09:24
--- NOTE | 2017-03-18 08:18 | DISCH ---
DISCHARGE FINAL DIAGNOSIS Problems Medical Problems: (1) Fall at home Status: Acute CONDITION ON DISCHARGE: Stable SNF STAY <30 DAYS: Yes POST DISCHARGE ORDERS ACTIVITY ORDERS: Activity as tolerated WEIGHT BEARING STATUS: As tolerated DIET AFTER DISCHARGE: Cardiac CHECKS AFTER DISCHARGE CHECKS AFTER DISCHARGE: Check blood sugar, ac/hs COMMENTS: VS per routine FOLLOW-UP PHYSICIAN FOLLOW-UP: ADmit to DR. MEDINA LAB ORDERS FOR FOLLOW-UP: CBC with diff, CMP, pre albumin in AM after admit TREATMENT/EQUIPMENT ORDERS ADAPTIVE EQUIPMENT NEEDED: JATIN Foster APRN Mar 18, 2017 08:17
[2017-03-18] MEDS ORDERED: BENZ1LOZ48 PO (08:23)
[2017-03-18] MEDS ORDERED: LIDO700A39 TD (08:23)
[2017-03-18] MEDS ORDERED: DICL100G18 TP (08:23)
[2017-03-18] MEDS ORDERED: CEFP100T PO (08:23)
[2017-03-18] MEDS ORDERED: BUDE0.5A NEB (08:23)
[2017-03-18] MEDS ORDERED: LACT1CAP19 PO (08:23)
[2017-03-18] MEDS ORDERED: INSU100I17 SQ (08:25)
[2017-03-18] MEDS: DICLOFENAC SODIUM 1% TOPICAL GEL 100GM TUBE. TP SCH ×3 (08:57→21:16)
[2017-03-18] MEDS: POLYETHYLENE GLYCOL 3350 17 GM PACKET. PO SCH (08:58)
[2017-03-18] MEDS: CARVEDILOL 6.25 MG TABLET. PO SCH ×2 (08:58→16:53)
[2017-03-18] MEDS: ASPIRIN ENTERIC COATED 81 MG TABLET.DR. PO SCH (08:58)
[2017-03-18] MEDS: LIDOCAINE (700MG/PATCH) PATCH. TD SCH (08:58)
[2017-03-18] MEDS: LACTOBACILLUS RHAMNOSUS GG 1 CAPSULE. PO SCH ×2 (08:58→21:16)
[2017-03-18] MEDS: FAMOTIDINE 20 MG TABLET. PO SCH (08:58)
[2017-03-18] MEDS: FUROSEMIDE 20 MG TABLET PO SCH (08:58)
[2017-03-18] MEDS: LOSARTAN POTASSIUM 50 MG TABLET. PO SCH ×2 (08:59→21:16)
[2017-03-18] MEDS: cloNIDine HCL 0.2 MG TABLET PO SCH ×2 (08:59→21:17)
[2017-03-18] MEDS: CEFPODOXIME PROXETIL 100 MG TABLET. PO SCH ×2 (08:59→21:15)
[2017-03-18] MEDS: CHOLECALCIFEROL (VITAMIN D3) 1,000 UNIT TABLET PO SCH (08:59)
[2017-03-18] MEDS: MULTIVITAMIN with MINERAL TABLET. PO SCH (08:59)
[2017-03-18] MEDS: POTASSIUM CHLORIDE 20 MEQ TABLET.ER. PO SCH (09:00)
[2017-03-18 11:49] VITALS: BP 149/71
[2017-03-18 15:00] VITALS: BP 175/73
--- NOTE | 2017-03-18 17:53 | PDOC ---
PROGRESS NOTES Subjective Subjective She admits some soreness in her feet while up walking. Objective Objective Vital Signs Date Time Temp Pulse Resp B/P (MAP) Pulse Ox O2 Delivery O2 Flow Rate FiO2 03/18/17 16:53 78 175/73 03/18/17 15:32 Room Air 03/18/17 11:49 98.2 18 96 98.2 Intake and Output 03/18/17 07:00 Intake Total 756 ml Balance 756 ml Intake Oral 756 ml # Voids 8 Physical Exam Physical Exam She is alert and sitting in recliner at bedside and she is participating satisfactorily with therapy.Her physical endurance is low. Assessment Assessment Problems Medical Problems: (1) Fall at home Status: Acute Plan Plan of Care Agree with plans for SNF transfer for a short stay. Comment Review of Relevant I have reviewed the following items daniela (where applicable) has been applied. Labs Laboratory Tests Test 03/16/17 21:13 03/17/17 07:26 03/17/17 11:31 03/17/17 16:57 Glucose (Fingerstick) 169 mg/dL (70-99) 134 mg/dL (70-99) 228 mg/dL (70-99) 111 mg/dL (70-99) Test 03/18/17 08:02 03/18/17 10:55 03/18/17 16:42 Glucose (Fingerstick) 147 mg/dL (70-99) 213 mg/dL (70-99) 241 mg/dL (70-99) Laboratory Tests Test 03/18/17 08:02 03/18/17 10:55 03/18/17 16:42 Glucose (Fingerstick) 147 mg/dL (70-99) 213 mg/dL (70-99) 241 mg/dL (70-99) Microbiology 03/14/17 Urine Culture - Final, Complete 03/14/17 Urine Culture Result 1 (LALITHA) - Final, Complete 03/14/17 Antimicrobic Susceptibility - Final, Complete Medications Current Medications Ondansetron HCl (Zofran) 4 mg 1X ONCE IV Last administered on 03/14/17 14:54 ; Start 03/14/17 at 15:00; Stop 03/14/17 at 15:01; Status DC Acetaminophen (Tylenol) 1,000 mg 1X ONCE PO Last administered on 11/23/17at 17 :54; Start 03/14/17 at 17:45; Stop 03/14/17 at 17:46; Status DC Carvedilol (Coreg) 6.25 mg 1X ONCE PO Last administered on 03/14/17 17:47; Start 03/14/17 at 17:45; Stop 03/14/17 at 17:46; Status DC Clonidine HCl (Catapres) 0.2 mg 1X ONCE PO Last administered on 03/14/17 17: 46; Start 03/14/17 at 17:45; Stop 03/14/17 at 17:46; Status DC Lidocaine (Lidoderm) 1 patch DAILY TD Last administered on 03/18/17 08:58; Start 03/14/17 at 17:45 Fentanyl Citrate (Fentanyl 2ml Vial) 25 mcg PRN Q15MIN PRN IV PAIN GREATER THAN 3/10; Start 03/14/17 at 17:15; Stop 03/15/17 at 11:52; Status DC Ceftriaxone Sodium 50 ml @ 100 mls/hr 1X ONCE IV Last administered on 17:48; Start 03/14/17 at 17:45; Stop 03/14/17 at 18:14; Status DC Ceftriaxone Sodium 1 gm/ Dextrose 50 ml @ 100 mls/hr Q24H IV ; Start 03/14/17 at 17:15; Status UNV Ceftriaxone Sodium (Rocephin) 1 gm Q24H IVP Last administered on 03/16/17 17: 17; Start 03/15/17 at 17:00; Stop 03/17/17 at 13:50; Status DC Carvedilol (Coreg) 6.25 mg BIDWMEALS PO Last administered on 03/18/17 16:53; Start 03/15/17 at 08:00 Clonidine HCl (Catapres) 0.2 mg BID66 PO ; Start 03/15/17 at 06:00; Stop 03/15 at 07:18; Status DC Losartan Potassium (Cozaar) 50 mg BID PO Last administered on 03/18/17 08:59 ; Start 03/14/17 at 21:00 Clonidine HCl (Catapres) 0.2 mg BID PO Last administered on 03/18/17 08:59; Start 03/15/17 at 09:00 Acetaminophen (Tylenol) 650 mg PRN Q8HRS PRN PO PAIN Last administered on 03/17 18:35; Start 03/15/17 at 09:00 Aspirin (Ecotrin) 81 mg DAILY PO Last administered on 03/18/17 08:58; Start 03/15/17 at 10:00 Cetirizine HCl (ZyrTEC) 10 mg HS PO Last administered on 03/17/17 20:51; Start 03/15/17 at 21:00 Vitamin D (Vitamin D3) 1,000 unit DAILY PO Last administered on 03/18/17 08: 59; Start 03/15/17 at 10:00 Clonidine HCl (Catapres) 0.2 mg BID PO ; Start 03/15/17 at 10:00; Status UNV Diclofenac Sodium (Voltaren) 1 griselda TID TP Last administered on 03/18/17 15:46 ; Start 03/15/17 at 10:00 Furosemide (Lasix) 20 mg DAILY PO Last administered on 03/18/17 08:58; Start 03/15/17 at 10:00 Albuterol/ Ipratropium (Duoneb) 3 ml RTQID NEB Last administered on 03/18/17 15:31; Start 03/15/17 at 09:30 Levothyroxine Sodium (Synthroid) 100 mcg DAILY07 PO Last administered on 06:00; Start 03/15/17 at 10:00 Montelukast Sodium (Singulair) 10 mg HS PO Last administered on 03/17/17 20: 51; Start 03/15/17 at 21:00 Multivitamins (Thera M Plus) 1 tab DAILY PO Last administered on 03/18/17 08: 59; Start 03/15/17 at 10:00 Polyethylene Glycol (miraLAX PACKET) 17 gm DAILY PO Last administered on 08:58; Start 03/15/17 at 10:00 Non-Formulary Medication 2 puff BID IH ; Start 03/15/17 at 09:00; Status UNV Potassium Chloride (Klor-Con) 20 meq DAILYWBKFT PO Last administered on 09:00; Start 03/15/17 at 10:00 Famotidine (Pepcid) 20 mg DAILY PO Last administered on 03/18/17 08:58; Start 03/15/17 at 10:00 Insulin Aspart (NovoLOG) BIDBFRMEAL SQ Last administered on 03/18/17 16:56; Start 03/15/17 at 09:30 Budesonide (Pulmicort) 0.5 mg RTBID NEB Last administered on 03/18/17 07:20; Start 03/15/17 at 09:30 Ceftriaxone Sodium 1 gm/ Dextrose 50 ml @ 100 mls/hr Q24H IV ; Start 03/15/17 at 11:30; Status UNV Lactobacillus Rhamnosus (Culturelle) 1 cap BID PO Last administered on 08:58; Start 03/15/17 at 21:00 Throat Lozenges (Cepacol Sore Throat Lozenge) 1 monae PRN Q2HRS PRN PO SORE THROAT; Start 03/16/17 at 17:00 Guaifenesin (Robitussin Dm) 5 ml PRN Q6HRS PRN PO COUGH Last administered on 20:38; Start 03/16/17 at 20:15 Cefpodoxime Proxetil (Vantin) 100 mg BID PO Last administered on 03/18/17 08: 59; Start 03/17/17 at 21:00 Ondansetron HCl (Zofran) 4 mg STK-MED ONCE .ROUTE ; Start 03/14/17 at 14:51; Stop 03/18/17 at 11:27; Status DC Active Scripts Active Novolog Flexpen (Insulin Aspart) 100 Unit/1 Ml Insuln.pen 0-8 Units SQ BIDBFRMEAL Sub q tid ac: BS <70=0 151-200= 2 units 201-250=3 units 805=679= 4 units 301-350= 6 units 351-400= 8 units Call >401 Lidocaine 1 Each Adh..patch 1 Patch TD DAILY R lateral ribs 9 and 10 Culturelle (Lactobacillus Rhamnosus Gg) 1 Each Cap.sprink 1 Cap PO BID Cefpodoxime Proxetil 100 Mg Tablet 100 Mg PO BID Budesonide 0.5 Mg/2 Ml Ampul.neb 0.5 Mg NEB RTBID Cepacol Sore Throat Lozenge (Benzocaine/Menthol) 1 Each Lozenge 1 Monae PO PRN Q2HRS PRN Voltaren (Diclofenac Sodium) 100 Gm Gel..gram. 4 Gm TP TID 4 gram Bilateral knees Aspir 81 (Aspirin) 81 Mg Tablet. 1 Tab PO DAILY Thera-M Tablet (Multivits,Ca,Minerals/Iron/Fa) 1 Each Tablet 1 Tab PO DAILY Carvedilol 6.25 Mg Tablet 6.25 Mg PO BIDWMEALS Reported Furosemide 20 Mg Tablet 20 Mg PO DAILY Duoneb 0.5-3(2.5) Mg/3 Ml (Albuterol/Ipratropium) 3 Ml Ampul.neb 3 Ml NEB QID Dulera 200 Mcg/5 Mcg Inhaler (Mometasone/Formoterol) 13 Gm Hfa.aer.ad 2 Puff IH BID Clonidine Hcl 0.2 Mg Tablet 1 Tab PO BID Zyrtec (Cetirizine Hcl) 10 Mg Tablet 1 Tab PO HS Vitamin D3 (Cholecalciferol (Vitamin D3)) 1,000 Unit Tablet 1 Tab PO DAILY Ranitidine Hcl 150 Mg Tablet 1 Tab PO BID Miralax (Polyethylene Glycol 3350) 17 Gm Powd.pack 1 Packet PO DAILY Acetaminophen 500 Mg Tablet 650 Mg PO Q8HRS PRN Potassium Chloride 10 Meq Capsule.er 20 Meq PO DAILY Singulair Tablet (Montelukast Sodium) 10 Mg Tablet 10 Mg PO HS Losartan Potassium 50 Mg Tablet 50 Mg PO BID Synthroid (Levothyroxine Sodium) 50 Mcg Tablet 100 Mcg PO DAILY Vitals/I & O Vital Sign - Last 24 Hours 03/17/17 03/17/17 03/17/17 03/17/17 18:32 19:00 19:33 20:00 Temp 98.8 98.8 Pulse 64 76 Resp 18 B/P (MAP) 135/60 157/68 (97) Pulse Ox 95 95 O2 Delivery Room Air Room Air Room Air 03/17/17 03/17/17 03/17/17 03/18/17 20:51 20:52 23:00 03:00 Temp 98.8 98.6 98.8 98.6 Pulse 76 76 67 70 Resp 18 18 B/P (MAP) 157/68 157/68 134/71 (92) 131/71 (91) Pulse Ox 95 95 O2 Delivery Room Air Room Air 03/18/17 03/18/17 03/18/17 03/18/17 07:00 07:21 07:40 08:58 Temp 97.6 97.6 Pulse 79 79 Resp 18 B/P (MAP) 180/71 (107) 180/71 Pulse Ox 95 96 O2 Delivery Room Air Room Air Room Air 03/18/17 03/18/17 03/18/17 03/18/17 08:59 08:59 11:12 11:49 Temp 98.2 98.2 Pulse 79 79 76 Resp 18 B/P (MAP) 180/71 180/71 149/71 (97) Pulse Ox 97 96 O2 Delivery Room Air Room Air 03/18/17 03/18/17 15:32 16:53 Pulse 78 B/P (MAP) 175/73 O2 Delivery Room Air Intake and Output 03/17/17 03/17/17 03/18/17 15:00 23:00 07:00 Intake Total 636 ml 120 ml Balance 636 ml 120 ml BETH JOHNSON MD Mar 18, 2017 17:53
[2017-03-18 19:10] VITALS: BP 164/64
[2017-03-18] MEDS: MONTELUKAST SODIUM 10 MG TABLET. PO SCH (21:16)
[2017-03-18] MEDS: CETIRIZINE HCL 10 MG TABLET. PO SCH (21:16)
[2017-03-18 23:05] VITALS: BP 124/73
[2017-03-19 03:05] VITALS: BP 124/51
[2017-03-19] MEDS: BUDESONIDE 0.5 MG/2 ML NEBU. NEB SCH (05:24)
[2017-03-19] MEDS: IPRATRPIUM/ALBUTEROL 0.5/2.5MG 3 ML NEBU. NEB SCH ×2 (05:24→12:19)
[2017-03-19] MEDS: LEVOTHYROXINE 100 MCG TABLET PO SCH (06:32)
[2017-03-19 07:00] VITALS: BP 148/69
--- NOTE | 2017-03-19 07:36 | PDOC3 ---
OLGAHannahJATIN ARELLANO CLASSIFIED ADVERTISING CLERK 03/19/17 0736: IM DISCHARGE & PROGRESS NOTES Date of Admission Date of Admission Date of Admission: Mar 14, 2017 at 17:36 Date of Discharge Date of Discharge 03/20/17 Primary Diagnosis Primary Diagnosis Final Diagnosis 1. Traumatic mechanical fall with bruising forehead, R lateral slightly displaced 9-10th rib fractures, fractures L big toe and toe #2 and R 2cd -3rd toe all non displaced 2. Acute UTI w/o sepsis E coli POA 3. Diabetes mellitus type 2 with neuropathy, [place] terminal agent insulin, not controlled 4. Hyperglycemia secondary to DM 5. Hypertension, uncontrolled.-not HTN urgency 6. Asthma. 7. Anemia of chronic disease. 8. Chronic kidney disease 2. 9. Hyperlipidemia. 10. Anxiety. 11. History of non-ST elevation myocardial infraction 04/2015 with negative coronary artery disease per cardiac catheterization. 12. Ischemic cardiomyopathy with a history of congestive heart failure, chronic , ejection fraction 25%, Takotsubo syndrome. 13. chronic moderate PCL malnutrition 14. 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 spinal stenosis C 6-C7 incidental finding/CT head/cervical spine- incidental finding Consults Consults Maira Isaac MD Procedures Procedures None Labs Labs Laboratory Tests Test 03/16/17 10:46 03/16/17 17:01 03/16/17 21:13 03/17/17 07:26 Glucose (Fingerstick) 204 mg/dL (70-99) 155 mg/dL (70-99) 169 mg/dL (70-99) 134 mg/dL (70-99) Test 03/17/17 11:31 03/17/17 16:57 03/18/17 08:02 03/18/17 10:55 Glucose (Fingerstick) 228 mg/dL (70-99) 111 mg/dL (70-99) 147 mg/dL (70-99) 213 mg/dL (70-99) Test 03/18/17 16:42 03/18/17 20:51 Glucose (Fingerstick) 241 mg/dL (70-99) 133 mg/dL (70-99) Medications Medications Medications reviewed and reconciled for discharge. Brief hospital course Brief hospital course This 86 year old [place] female who presented with traumatic fall was admitted. The following is a summary of her treatment: PLAN: fall with multiple fractures Rehab medicine PT OT consult Pain medication Pain bilateral toes with standing. UTI POA no sepsis Rocephin IV changed to vantin 100mg bid - continue for 5 days after discharge DM II not controlled BS 133-241 FSBS AC/HS with SSI low intensity Novolog Continue current plan of care - h/o acute hypoglycemia as she does not take medications as directed at home Anemia chronic disease Admit Hgb 11.0 03/16 9.5 Hold ASA- bruising forehead no overt bleeding DC orders for SNU initiated 03/18-not accepted at [facility] (insurance) -plan DC to SNU [facility] today. Discharge orders reviewed with no changes. See orders for further plan of care 03/17/17 PLAN: spoke with daughter, [facility] Labs ok urine c/s 100,0000gram neg rods.iv rocephin pt/ot 03/14/17 Admit to the hospital. Consult Dr. Isaac for reevaluation and management. I started her on IV Rocephin. Follow up urine culture. Condition and treatment discussed with the patient and the daughter. Start physical therapy and monitor her balance. For details, please refer to the orders. For more details regarding the past history, family history, social history, surgical history and other details, please refer to History and Physical. Please see discharge orders for SNU at [place]. Subjective feeling better Objective alert no distress Vitals Vital Signs Date Time Temp Pulse Resp B/P (MAP) Pulse Ox O2 Delivery O2 Flow Rate FiO2 03/19/17 05:24 96 Room Air 03/19/17 03:05 97.7 61 24 124/51 (75) 97.7 Physical Exam General appearance - alert,well appearing, and in no distress Mental Status - alert, oriented to person, place, and time, affect appropriate to mood Head - Facial bruising forehead, bridge nose, R orbital >L Chest - clear to auscultation, no wheezes, rales or rhonchi, DB w/o splinting Heart - S1 and S2 normal Abdomen - soft, nontender, nondistended, obese, BS + Neurological - no acute focal neurological deficit. Musculoskeletal - no muscular tenderness noted Extremities - no pedal edema Skin - warm and dry Medications Medications reviewed. Allergy Allergies Coded Allergies Type Severity Reaction Last Updated Verified celecoxib Allergy Intermediate 04/26/16 Yes hydrocodone Allergy Intermediate 07/24/15 Yes itraconazole Allergy Intermediate 07/24/15 Yes metoclopramide Allergy Intermediate 07/24/15 Yes propoxyphene Allergy Intermediate 07/24/15 Yes Follow up Admit to facility Disposition: Shelter facility Comments Discharge Management - 35 minutes. For other details please refer to discharge instructions LUPE MEDINA MD 03/19/17 1025: IM DISCHARGE & PROGRESS NOTES Brief hospital course Comments The patient was seen and examined by me. Chart reviewed and plan of care formulated. Discussed with, reviewed and agree with SWEATER DESIGNER's notes, plan of care and orders with modifications as necessary. For more details regarding further plans, please refer to the orders. JATIN KEARNS APRN Mar 19, 2017 07:36 LUPE MEDINA MD Mar 19, 2017 10:25
[2017-03-19] MEDS: MULTIVITAMIN with MINERAL TABLET. PO SCH (08:48)
[2017-03-19] MEDS: POLYETHYLENE GLYCOL 3350 17 GM PACKET. PO SCH (08:48)
[2017-03-19] MEDS: DICLOFENAC SODIUM 1% TOPICAL GEL 100GM TUBE. TP SCH (08:48)
[2017-03-19] MEDS: FAMOTIDINE 20 MG TABLET. PO SCH (08:48)
[2017-03-19] MEDS: CARVEDILOL 6.25 MG TABLET. PO SCH (08:48)
[2017-03-19] MEDS: LACTOBACILLUS RHAMNOSUS GG 1 CAPSULE. PO SCH (08:48)
[2017-03-19] MEDS: ASPIRIN ENTERIC COATED 81 MG TABLET.DR. PO SCH (08:49)
[2017-03-19] MEDS: CEFPODOXIME PROXETIL 100 MG TABLET. PO SCH (08:49)
[2017-03-19] MEDS: CHOLECALCIFEROL (VITAMIN D3) 1,000 UNIT TABLET PO SCH (08:49)
[2017-03-19] MEDS: cloNIDine HCL 0.2 MG TABLET PO SCH (08:49)
[2017-03-19] MEDS: POTASSIUM CHLORIDE 20 MEQ TABLET.ER. PO SCH (08:49)
[2017-03-19] MEDS: LOSARTAN POTASSIUM 50 MG TABLET. PO SCH (08:49)
[2017-03-19] MEDS: FUROSEMIDE 20 MG TABLET PO SCH (08:49)
[2017-03-19] MEDS: LIDOCAINE (700MG/PATCH) PATCH. TD SCH (08:50)
[2017-03-19] MEDS: ACETAMINOPHEN 500 MG TABLET PO PRN (08:53)
[2017-03-19] MEDS: INSULIN ASPART 300 UNITS/3 ML INSULN.PEN SQ SCH (09:01)
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
[2017-03-19 11:56] VITALS: BP 182/72
== END 2017-03-19 14:05 | DRG 184 ==
LOC: ER 13:59 → 4 NORTH 17:36
PROVIDERS: ADMIT Internal Medicine; ATTEND Internal Medicine
DX: S22.41XA Multiple fractures of ribs, right side, initial encounter for closed fracture (principal); E44.0 Moderate protein-calorie malnutrition; E11.22 Type 2 diabetes mellitus with diabetic chronic kidney disease; K31.84 Gastroparesis; E11.43 Type 2 diabetes mellitus with diabetic autonomic (poly)neuropathy; E11.65 Type 2 diabetes mellitus with hyperglycemia; M48.02 Spinal stenosis, cervical region; N39.0 Urinary tract infection, site not specified; I13.0 Hypertensive heart and chronic kidney disease with heart failure and stage 1 through stage 4 chronic kidney disease, or unspecified chronic kidney disease; I50.32 Chronic diastolic (congestive) heart failure; S92.402A Displaced unspecified fracture of left great toe, initial encounter for closed fracture; W01.0XXA Fall on same level from slipping, tripping and stumbling without subsequent striking against object, initial encounter; D63.8 Anemia in other chronic diseases classified elsewhere; S00.83XA Contusion of other part of head, initial encounter; E03.9 Hypothyroidism, unspecified; Z68.22 Body mass index [BMI] 22.0-22.9, adult; E66.9 Obesity, unspecified; E78.00 Pure hypercholesterolemia, unspecified; E78.5 Hyperlipidemia, unspecified; F32.9 Major depressive disorder, single episode, unspecified; F41.9 Anxiety disorder, unspecified; G89.29 Other chronic pain; I25.2 Old myocardial infarction; I25.5 Ischemic cardiomyopathy; J45.909 Unspecified asthma, uncomplicated; K21.9 Gastro-esophageal reflux disease without esophagitis; K57.30 Diverticulosis of large intestine without perforation or abscess without bleeding; M17.0 Bilateral primary osteoarthritis of knee; N18.2 Chronic kidney disease, stage 2 (mild); Y92.009 Unspecified place in unspecified non-institutional (private) residence as the place of occurrence of the external cause; Y93.01 Activity, walking, marching and hiking; Z79.4 Long term (current) use of insulin; Z82.49 Family history of ischemic heart disease and other diseases of the circulatory system; Z82.5 Family history of asthma and other chronic lower respiratory diseases; Z83.3 Family history of diabetes mellitus; Z87.01 Personal history of pneumonia (recurrent); Z87.440 Personal history of urinary (tract) infections; Z90.49 Acquired absence of other specified parts of digestive tract; Z96.619 Presence of unspecified artificial shoulder joint; E05.90 Thyrotoxicosis, unspecified without thyrotoxic crisis or storm; Z88.5 Allergy status to narcotic agent; Z88.8 Allergy status to other drugs, medicaments and biological substances; Y92.092 Bedroom in other non-institutional residence as the place of occurrence of the external cause; Y99.8 Other external cause status; S92.902A Unspecified fracture of left foot, initial encounter for closed fracture; S92.901A Unspecified fracture of right foot, initial encounter for closed fracture; S92.911A Unspecified fracture of right toe(s), initial encounter for closed fracture
CPT/HCPCS: 36415; 70450; 70486; 71101; 72072; 72125; 73502; 73552; 73564; 73565; 73630; 80053; 81001; 82962; 83735; 84484; 85025; 87086; 87186; 93005; 93971; 94250; 94640; 94760; 96374; G0238; J0690; J0696; J1815; J2405; J7620; J7626; 97110; 97116; 97530; 97535; 99285-25

== ENCOUNTER 2017-12-06 12:59 | Emergency (ER) | payer BC ==
[~2017-12-06] VITALS: Ht 154.9 cm; Wt 54.9 kg
[~2017-12-06 12:59] MED LIST changes: +BENZ1LOZ48 PO; +BUDE0.5A NEB; +CEFP100T PO; +INSU100I17 SQ; -IPRA3AMP NEB; +IPRA3AMP29 NEB; +LACT1CAP19 PO; +LIDO700A39 TD; +POTA10TA12 PO; -POTASSIUM CHLO10 MEQ PO
[2017-12-06] MEDS ORDERED: ASPIRIN 325 MG TABLET PO ONE ×2 (13:30)
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
--- NOTE | 2017-12-06 14:05 | EKG ---
[facility] [address] [place] [address] Test Date: 2017-12-06 Test Time: 13:20:02 Pat Name: FARZANEH MAHARAJ Department: Room: Gender: F [employer] Imp[employer]: [id number] : 1930 Requested By: [place] MORSE Order Number: [id number] Reading MD: Ambrocio West MD Measurements Intervals Mather Rate: 68 P: -24 ND: 150 QRS: -19 QRSD: 94 T: -4 QT: 380 QTc: 409 Interpretive Statements SINUS RHYTHM Electronically Signed On 12-09-2017 10:36:50 CDT by Ambrocio eWst MD
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
[2017-12-06 14:25] LABS: BASO % 1 % (0-3); EOS # 0.1 x10^3/uL (0.0-0.7); EOS % 2 % (0-3); HEMATOCRIT 31.4 % (36.0-47.0); HEMOGLOBIN 10.6 g/dL (12.0-15.5); LYMPH # 1.4 x10^3/uL (1.0-4.8); LYMPH % 21 % (24-48); MEAN CORPUSCULAR HEMOGLOBIN 29 pg (25-35); MEAN CORPUSCULAR HGB CONC 34 g/dL (31-37); MEAN CORPUSCULAR VOLUME 86 fL (79-100); MONO # 0.6 x10^3/uL (0.0-1.1); MONO % 8 % (0-9); NEUT # 4.8 x10^3uL (1.8-7.7); NEUT % 69 % (31-73); PLATELET COUNT 235 x10^3/uL (140-400); RED BLOOD COUNT 3.65 x10^6/uL (3.50-5.40); RED CELL DISTRIBUTION WIDTH 14.8 % (11.5-14.5); WHITE BLOOD COUNT 6.9 x10^3/uL (4.0-11.0)
[2017-12-06 14:32] LABS: PROTHROMBIN TIME PATIENT 13.7 SEC (11.7-14.0)
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
[2017-12-06 14:51] LABS: CREATININE 0.7 mg/dL (0.6-1.0); GFR 78.8; POTASSIUM 3.5 mmol/L (3.5-5.1)
[2017-12-06 15:02] LABS: ALBUMIN 3.7 g/dL (3.4-5.0); ALBUMIN/GLOBULIN RATIO 0.7 (1.0-1.7); MAGNESIUM 1.9 mg/dL (1.8-2.4); TOTAL BILIRUBIN 0.5 mg/dL (0.2-1.0); TOTAL PROTEIN 8.7 g/dL (6.4-8.2)
[2017-12-06 15:07] LABS: CREATINE KINASE 32 U/L (26-192)
[2017-12-06 15:14] VITALS: BP 202/80
[2017-12-06 15:30] LABS: BILIRUBIN,URINE NEGATIVE (NEG); CLARITY,URINE CLEAR; COLOR,URINE YELLOW; NITRITE,URINE NEGATIVE (NEG); PH,URINE 6.5; PROTEIN,URINE NEGATIVE (NEG-TRACE)
[2017-12-06 15:34] LABS: BARBITURATES NEG (NEG); BENZODIAZEPINES NEG (NEG); CANNABINOIDS NEG (NEG); COCAINE NEG (NEG); METHADONE NEG (NEG); OPIATES NEG (NEG); PHENCYCLIDINE NEG (NEG)
[2017-12-06 15:39] LABS: AMPHETAMINE/METHAMPHETAMINE NEG (NEG)
[2017-12-06 15:44] LABS: BACTERIA,URINE 0 /HPF (0-FEW); RBC,URINE 0 /HPF (0-2); SQUAMOUS EPITHELIAL CELL,UR FEW /LPF
[2017-12-06 15:45] LABS: HYALINE CASTS, URINE MANY /HPF
== END 2017-12-06 16:00 | disposition home or self-care (01) ==
LOC: ER 12:59
DX: R07.2 Precordial pain (principal); M25.511 Pain in right shoulder; K21.9 Gastro-esophageal reflux disease without esophagitis; E78.00 Pure hypercholesterolemia, unspecified; I11.0 Hypertensive heart disease with heart failure; I50.9 Heart failure, unspecified; E11.9 Type 2 diabetes mellitus without complications; J45.909 Unspecified asthma, uncomplicated; E05.90 Thyrotoxicosis, unspecified without thyrotoxic crisis or storm; N28.9 Disorder of kidney and ureter, unspecified; Z98.890 Other specified postprocedural states; Z90.49 Acquired absence of other specified parts of digestive tract; Z88.5 Allergy status to narcotic agent; Z88.8 Allergy status to other drugs, medicaments and biological substances; V49.59XA Passenger injured in collision with other motor vehicles in traffic accident, initial encounter; Y93.89 Activity, other specified; Y92.488 Other paved roadways as the place of occurrence of the external cause; Y99.8 Other external cause status
CPT/HCPCS: 36415; 71045; 73030; 80053; 80307; 81001; 82553; 83735; 83880; 84443; 84484; 85025; 85610; 87086; 93005; 99285-25; G0479

== ENCOUNTER 2018-08-12 12:36 | Emergency (ER) | payer BC ==
[~2018-08-12] VITALS: Ht 154.9 cm; Wt 54.9 kg
[~2018-08-12 12:36] MED LIST changes: +ALBU2.5V8 IH; +CARV6.2511 PO; -CARV6.252 PO; +LOSA-73 PO; -LOSA50TA6 PO; -PROVENTIL HFA6.7 GM IH
--- NOTE | 2018-08-12 13:43 | PHYS DOC ---
Past Medical History Past Medical History: Asthma, CHF, Depression, Diabetes-Type II, GERD, High Cholesterol, Hypertension, Hyperthyroid, Pneumonia, Renal Disease Additional Past Medical Histor: Thyroid (MIRANDA KILGORE APRN) Past Surgical History: Cholecystectomy, , Other Additional Past Surgical Histo: R SHOULDER (MIRANDA KILGORE APRN) Alcohol Use: None Drug Use: None (MIRANDA KILGORE APRN) Adult General Chief Complaint Chief Complaint: WRIST PAIN HPI HPI Patient is a 87 year old female presents with her daughter requesting a splint to the left wrist. Patient had a ground-level fall on Saturday, fell onto her right arm. States was not using her walker and knew she should have been. Reports she lost her balance. Patient states she did not hit her head or pass out. Patient was seen by Dr. Boothe, her primary care doctor yesterday who ordered an x-ray of the left hand, wrist and elbow at [facility]. The x-ray was done yesterday, they have tried to get her into an orthopedic doctor today but were unable and requested she come to the emergency room to get a splint placed today. Patient denies any other injuries. Patient faxed from Dr. Boothe's office, patient to see Dr. Ramsey and was advised to ED for splinting by Dr Ramsey, per nurses note (MIRANDA KILGORE APRN) Review of Systems Review of Systems Constitutional: Denies fever or chills [] Eyes: Denies change in visual acuity, redness, or eye pain [] HENT: Denies nasal congestion or sore throat [] Respiratory: Denies cough or shortness of breath [] Cardiovascular: No additional information not addressed in HPI [] GI: Denies abdominal pain, nausea, vomiting, bloody stools or diarrhea [] : Denies dysuria or hematuria [] Musculoskeletal: Left forearm and hand swelling and tenderness[] Integument: Bruising to left forearm and hand, left shoulder, and chin[] Neurologic: Denies headache, focal weakness or sensory changes [] Endocrine: Denies polyuria or polydipsia [] All other systems were reviewed and found to be within normal limits, except as documented in this note. (MIRANDA KILGORE APRN) Allergies Allergies Allergies Coded Allergies Type Severity Reaction Last Updated Verified celecoxib Allergy Intermediate 1/5/17 Yes hydrocodone Allergy Intermediate 07/24/15 Yes itraconazole Allergy Intermediate 07/24/15 Yes metoclopramide Allergy Intermediate 07/24/15 Yes propoxyphene Allergy Intermediate 07/24/15 Yes (LOGAN SAMPSON MD) Physical Exam Physical Exam Constitutional: Well developed, well nourished, no acute distress, non-toxic appearance. [] HENT: Normocephalic, atraumatic, bilateral external ears normal, oropharynx moist, no oral exudates, nose normal, SMALL BRUISE LEFT SIDE OF CHIN. [] Eyes: PERRLA, EOMI, conjunctiva normal, no discharge. [] Neck: Normal range of motion, no tenderness, supple, no stridor. [] Skin: Ecchymosis to anterior left shoulder, left forearm and hand[] Back: No tenderness, no CVA tenderness. [] Extremities: Tenderness to left distal wrist, swelling, bruising extending from forearm down to the hand, pulses intact and equal, neurovascular intact[] Neurologic: Alert and oriented X 3, normal motor function, normal sensory function, no focal deficits noted. [] Psychologic: Affect normal, judgement normal, mood normal. [] (MIRANDA KILGORE APRN) Current Patient Data Vital Signs Vital Signs Date Time Temp Pulse Resp B/P (MAP) Pulse Ox O2 Delivery O2 Flow Rate FiO2 08/12/18 13:20 97.0 62 18 142/65 (90) 97 Room Air 97.0 (LOGAN SAMPSON MD) EKG EKG [] (MIRANDA KILGORE APRN) Radiology/Procedures Radiology/Procedures [Splint Assessment: Neurovascularly intact post splint placement with good fit. ] She was placed into a sugar tong splint to the left upper extremity, well padded, neurovascular intact (MIRANDA KILGORE APRN) Impressions: [facility] [place] x-ray of left forearm impression is transverse fractures of the distal radius and ulna, degenerative changes including marked chondrocalcinosis X-ray of left hand negative, x-ray of left elbow negative (MIRANDA KILGORE APRN) Course & Med Decision Making Course & Med Decision Making Pertinent Labs and Imaging studies reviewed. (See chart for details) [] (MIRANDA KILGORE APRN) Course & Med Decision Making I was available for consultation regarding this patient's care. I did not see or examine the pt unless otherwise specified. (LOGAN SAMPSON MD) Dragon Disclaimer Dragon Disclaimer This electronic medical record was generated, in whole or in part, using a voice recognition dictation system. (MIRANDA KILGORE APRN) Departure Departure Impression: Primary Impression: Radius/ulna fracture Disposition: HOME, SELF-CARE Condition: STABLE Referrals: LUPE BOOTHE MD (PCP) JOVANA RAMSEY II, MD Patient Instructions: Forearm Fracture, [id number] Scripts Docusate Sodium (COLACE) 100 Mg Capsule 1 CAP PO BID, #20 CAP Prov: MIRANDA KILGORE APRN 08/12/18 Oxycodone/Apap 5-325 (PERCOCET 5-325 MG TABLET ) 1 Each Tablet 1 TAB PO PRN Q6HRS PRN for PAIN, #10 TAB 0 Refills Prov: MIRANDA KILGORE APRN 08/12/18 Problem Qualifiers Primary Impression: Radius/ulna fracture Encounter type: initial encounter Fracture type: closed Laterality: left Qualified Codes: S52.92XA - Unspecified fracture of left forearm, initial encounter for closed fracture; S52.202A - Unspecified fracture of shaft of left ulna, initial encounter for closed fracture MIRANDA KILGORE APRN Aug 12, 2018 13:43 LOGAN SAMPSON MD Aug 12, 2018 17:35
[2018-08-12] MEDS ORDERED: OXYC1TAB15 PO (14:32)
[2018-08-12] MEDS ORDERED: DOCU-109 PO (14:35)
[2018-09-13] MEDS ORDERED: ESCITALOPRAM PO (01:11)
[2018-09-13] MEDS ORDERED: LEVO100T5 PO (01:11)
[2018-09-13] MEDS ORDERED: RANI150T2 PO (01:16)
[2018-09-15] MEDS ORDERED: AMLO5TAB10 PO (10:51)
== END 2018-08-12 15:10 | disposition home or self-care (01) ==
LOC: ER 12:36
DX: S52.92XA Unspecified fracture of left forearm, initial encounter for closed fracture (principal); S52.202A Unspecified fracture of shaft of left ulna, initial encounter for closed fracture; K21.9 Gastro-esophageal reflux disease without esophagitis; I11.0 Hypertensive heart disease with heart failure; E78.00 Pure hypercholesterolemia, unspecified; I50.9 Heart failure, unspecified; E11.9 Type 2 diabetes mellitus without complications; J45.909 Unspecified asthma, uncomplicated; Z90.49 Acquired absence of other specified parts of digestive tract; Z88.5 Allergy status to narcotic agent; Z88.8 Allergy status to other drugs, medicaments and biological substances; W01.0XXA Fall on same level from slipping, tripping and stumbling without subsequent striking against object, initial encounter; Y93.89 Activity, other specified; Y92.89 Other specified places as the place of occurrence of the external cause; Y99.8 Other external cause status
CPT/HCPCS: 29125; 99284-25